=== PATIENT | female | born 1930 | race Caucasian/White ===

== ENCOUNTER 2016-06-23 04:15 | Inpatient (IN) | payer MEDICARE ==
[~2016-06-23] VITALS: Ht 147.3 cm; Wt 72.6 kg
[~2016-06-23 04:15] MED LIST: AMLO10TA2 PO; AMLO1CAP12 PO; AMOX1TAB61 PO; APIX5TAB PO; ASCO500C PO; ASCO500T2 PO; ASPI81TA44 PO; ASPI81TA9 PO; DIAZ5TAB PO; DIAZ5TAB4 PO; DOCU-27 PO; Diltiazem Hcl PO; ERGO500012 PO; FERR-26 PO; FERR325T72 PO; FERR500P8 MC; GUAI5SYR PO; HYDR-2672 PO; HYDR25TA9 PO; LEVO50TA5 PO; METO25TA4 PO; MULT-658 PO; NITR100C62 PO; PENI250T2 PO; POLY17PO5 PO; POLY500P14 MC; ROPI0.5T PO; VIT1CAPS10 PO; VIT1CAPS12 PO; VITA100020 PO; VITA200C PO; [UNRECOGNIZED DRUG - CODE] PO; [UNRECOGNIZED DRUG - CODE] PO; [UNRECOGNIZED DRUG - REMARK] MC
--- NOTE | 2016-06-23 04:42 | PHYS DOC ---
Past Medical History Past Medical History: Anxiety, High Cholesterol, Hypertension, Hypothyroid, Other Additional Past Medical Histor: HEART VALVE DISEASE Past Surgical History: Pacemaker, Other Additional Past Surgical Histo: umbilicial surgery, back surgery,DEFIBRILLATOR Alcohol Use: None Drug Use: None Adult General Chief Complaint Chief Complaint: MECHANICAL FALL HPI HPI 85-year-old female who had a fall from her bed at her assisted living facility, [facility], and has a large area of swelling to the right frontotemporal area of her forehead. Currently the patient had a fall several days ago as well but did not come in for evaluation at that time. Patient does state she has a mild headache but denies any other symptoms. EMS stated her O2 saturation was in the 80s and he put her on some oxygen prior to arrival. Currently she denies any chest pain or shortness of breath. She denies any fever or chills. She is without any complaints. She is able to answer all my questions and follow basic commands. Per the facility she is at her stated baseline. Her med list does not reveal any blood thinners. Review of Systems Review of Systems Constitutional: Denies fever or chills [] Eyes: Denies change in visual acuity, redness, or eye pain [] HENT: Denies nasal congestion or sore throat [] Respiratory: Denies cough or shortness of breath [] Cardiovascular: No additional information not addressed in HPI [] GI: Denies abdominal pain, nausea, vomiting, bloody stools or diarrhea [] : Denies dysuria or hematuria [] Musculoskeletal: Denies back pain or joint pain [] Integument: Denies rash or skin lesions [] Neurologic: Has headache, denies focal weakness or sensory changes [] Endocrine: Denies polyuria or polydipsia [] Current Medications Current Medications Current Medications Medications (Trade) Dose Ordered Sig/Josephine Start Time Stop Time Status Last Admin Dose Admin Acetaminophen (Tylenol) 650 mg PRN Q4HRS PRN 06/23/16 06:00 06/24/16 05:59 Acetaminophen 650 mg 650 mg 1X ONCE 06/23/16 05:00 06/23/16 05:01 DC 06/23/16 06:15 650 MG Albuterol/ Ipratropium (Duoneb) 3 ml 1X ONCE 06/23/16 05:00 06/23/16 05:01 DC 06/23/16 04:52 3 ML Azithromycin (Zithromax 500mg Ivpb For Omni) 250 ml @ 250 mls/hr 1X ONCE 06/23/16 05:45 06/23/16 06:44 Ondansetron HCl 4 mg 4 mg PRN Q8HRS PRN 06/23/16 06:00 06/24/16 05:59 Piperacillin Sod/ Tazobactam Sod 3.375 gm/Sodium Chloride 50 ml @ 100 mls/hr 1X ONCE 06/23/16 06:00 06/23/16 06:29 DC 06/23/16 06:15 100 MLS/HR Sodium Chloride (Iv Sodium Chloride 0.9% 500ml Bag) 500 ml @ 500 mls/hr 1X ONCE 06/23/16 04:45 06/23/16 05:44 DC 06/23/16 06:16 500 MLS/HR Sodium Chloride (Iv Sodium Chloride 0.9% 1000ml Bag) 1,000 ml @ 125 mls/hr Q8H 06/23/16 06:00 06/24/16 05:59 Vancomycin HCl (Vanco Per Pharmacy) 1 each PRN DAILY PRN 06/23/16 05:45 UNV Allergies Allergies Allergies Coded Allergies Type Severity Reaction Last Updated Verified No Known Allergies Allergy Unknown 02/17/16 Yes sulfur dioxide Adverse Reaction Intermediate COUGH 11/27/14 Yes Physical Exam Physical Exam Constitutional: Well developed, well nourished, no acute distress, non-toxic appearance. [] HENT: Normocephalic, area of swelling to the right frontotemporal region with noted bruising as well, bilateral external ears normal, oropharynx moist, no oral exudates, nose normal. [] Eyes: PERRLA, EOMI, conjunctiva normal, no discharge. [] Neck: Normal range of motion, no tenderness, supple, no stridor. [] Cardiovascular:Heart rate regular rhythm, no murmur [] Lungs & Thorax: Right lung has crackles with mild wheezing heard, no acute respiratory distress [] Abdomen: Bowel sounds normal, soft, no tenderness, no masses, no pulsatile masses. [] Skin: Warm, dry, no erythema, no rash. [] Back: No tenderness, no CVA tenderness. [] Extremities: Moderate tenderness to right foot with old bruising seen, no cyanosis, no clubbing, ROM intact, no edema. [] Neurologic: Alert and oriented X 3, normal motor function, normal sensory function, no focal deficits noted. [] Psychologic: Affect normal, judgement normal, mood normal. [] Current Patient Data Vital Signs Vital Signs Date Time Temp Pulse Resp B/P Pulse Ox O2 Delivery O2 Flow Rate FiO2 06/23/16 04:52 96 Room Air 06/23/16 04:15 100.0 64 14 167/87 3 100.0 Lab Values Laboratory Tests Test 06/23/16 05:40 White Blood Count 12.9x10^3/uL (4.0-11.0) H Red Blood Count 2.72x10^6/uL (3.50-5.40) L Hemoglobin 7.9g/dL (12.0-15.5) L Hematocrit 24.6% (36.0-47.0) L Mean Corpuscular Volume 90fL (79-100) Mean Corpuscular Hemoglobin 29pg (25-35) Mean Corpuscular Hemoglobin Concent 32g/dL (31-37) Red Cell Distribution Width 15.2% (11.5-14.5) H Platelet Count 274x10^3/uL (140-400) Neutrophils (%) (Auto) 86% (31-73) H Lymphocytes (%) (Auto) 7% (24-48) L Monocytes (%) (Auto) 6% (0-9) Eosinophils (%) (Auto) 1% (0-3) Basophils (%) (Auto) 1% (0-3) Neutrophils # (Auto) 11.1x10^3uL (1.8-7.7) H Lymphocytes # (Auto) 0.9x10^3/uL (1.0-4.8) L Monocytes # (Auto) 0.8x10^3/uL (0.0-1.1) Eosinophils # (Auto) 0.1x10^3/uL (0.0-0.7) Basophils # (Auto) 0.1x10^3/uL (0.0-0.2) Platelet Estimate Pending Urine Collection Type U cath Urine Color Yellow Urine Clarity Turbid Urine pH 7.5 Urine Specific [place] 1.015 Urine Protein 30mg/dL (NEG-TRACE) Urine Glucose (UA) Negativemg/dL (NEG) Urine Ketones (Stick) Negativemg/dL (NEG) Urine Blood Large (NEG) Urine Nitrite Positive (NEG) Urine Bilirubin Negative (NEG) Urine Urobilinogen Dipstick 1.0mg/dL (0.2 mg/dL) Urine Leukocyte Esterase Large (NEG) Urine RBC 6-10/HPF (0-2) Urine WBC >40/HPF (0-4) Urine Squamous Epithelial Cells Occ/LPF Urine Bacteria Many/HPF (0-FEW) Sodium Level 143mmol/L (136-145) Potassium Level 4.0mmol/L (3.5-5.1) Chloride Level 105mmol/L (98-107) Carbon Dioxide Level 30mmol/L (21-32) Anion Gap 8 (6-14) Blood Urea Nitrogen 22mg/dL (7-20) H Creatinine 0.9mg/dL (0.6-1.0) Estimated GFR (Cockcroft-Gault) 59.4 BUN/Creatinine Ratio 24 (6-20) H Glucose Level 115mg/dL (70-99) H Calcium Level 8.8mg/dL (8.5-10.1) Total Bilirubin 0.3mg/dL (0.2-1.0) Aspartate Amino Transferase (AST) 16U/L (15-37) Alanine Aminotransferase (ALT) 11U/L (14-59) L Alkaline Phosphatase 88U/L (46-116) Total Protein 6.8g/dL (6.4-8.2) Albumin 3.1g/dL (3.4-5.0) L Albumin/Globulin Ratio 0.8 (1.0-1.7) L Laboratory Tests 06/23/16 05:40 Laboratory Tests 06/23/16 05:40 EKG EKG EKG as interpreted by me shows a paced rhythm with a rate of 82 bpm. There is a nonspecific intraventricular block. Intervals are normal. There are no acute ST findings. Radiology/Procedures Radiology/Procedures One view of the chest as interpreted by me reveals what appears to be a left lower lobe pneumonia. Right hip and AP view of the pelvis Course & Med Decision Making Course & Med Decision Making Pertinent Labs and Imaging studies reviewed. (See chart for details) 85-year-old female who presents from assisted living facility has a low-grade temperature and obvious head injury. CT of her head will be obtained as well as full laboratory workup including a set of blood cultures and lactate. IV fluids will also be given. Her laboratory workup is still pending but does show a slight leukocytosis of 12.3. Her need for admission is discussed with the hospitalist, Dr. Orosco, who agreed with the assessment and plan to accept the patient for further evaluation and treatment. Antibiotic therapy was ordered for hospital-acquired pneumonia. CT of her head did not reveal any acute traumatic bleed that did show significant soft tissue swelling to the scalp. She is still requiring 3 L by nasal cannula. She was admitted without incident. Her hemoglobin today is 7.9 which has trended down over the last 4 months from a hemoglobin taken in January that was 11. She denies any blood in her stool. A fecal occult blood test will be ordered. Her urinalysis reveals nitrites. Dr. Orosco was updated about her laboratory results. Dragon Disclaimer Dragon Disclaimer This electronic medical record was generated, in whole or in part, using a voice recognition dictation system. Departure Departure Impression: Primary Impression: Hospital-acquired pneumonia Additional Impressions: Head injury Anemia UTI (urinary tract infection) Disposition: 01 HOME, SELF-CARE Admitting Physician: Tony Orosco Condition: STABLE Referrals: Kathryn PEREZ MD (PCP) Problem Qualifiers DARRIAN MONGE DO Jun 23, 2016 04:42
[2016-06-23] MEDS ORDERED: IV NORMAL SALINE 500ML BAG 500 ML IV ONE (04:45)
[2016-06-23] MEDS ORDERED: IPRATRPIUM/ALBUTEROL 0.5/2.5MG 3 ML NEBU. NEB ONE (05:00)
[2016-06-23] MEDS ORDERED: ACETAMINOPHEN 325 MG TABLET. PO ONE (05:00)
--- NOTE | 2016-06-23 05:16 | RAD ---
INDICATION: Trauma COMPARISON: November 25, 2014 TECHNIQUE: Axial CT images obtained through the head. One or more of the following individualized dose reduction techniques were utilized for this examination: 1. Automated exposure control; 2. Adjustment of the mA and/or kV according to patient size; 3. Use of iterative reconstruction technique. FINDINGS: No midline shift. Ventricles and sulci are prominent. Basilar cistern patent. No gross hemorrhage or intracranial mass. No displaced skull fracture. Regions of low attenuation of the white matter. IMPRESSION: No acute intracranial hemorrhage. Regions of low attenuation of the white matter. Nonspecific but frequently secondary to chronic small vessel ischemic disease. Right frontal scalp cephalohematoma at least moderate in size. Opacification left maxillary sinus is again seen. Electronically signed by: Regan Ramirez (Jun 23, 2016 05:14:58)
[2016-06-23] MEDS ORDERED: AZITHRMYCN 500MG IVPB FOR OMNI 250 ML IV ONE (05:45)
[2016-06-23] MEDS ORDERED: PIPERACILLIN/TAZOBACTAM 3.375 GM in IV NORMAL SALINE 50ML 50 ML IV ONE (06:00)
[2016-06-23] MEDS ORDERED: ONDANSETRON PF 4 MG/2 ML VIAL. IV PRN (06:00)
[2016-06-23] MEDS ORDERED: ACETAMINOPHEN 325 MG TABLET. PO PRN (06:00)
[2016-06-23 06:07] LABS: BASO # 0.1 x10^3/uL (0.0-0.2); BASO % 1 % (0-3); EOS % 1 % (0-3); HEMATOCRIT 24.6 % (36.0-47.0); HEMOGLOBIN 7.9 g/dL (12.0-15.5); LYMPH # 0.9 x10^3/uL (1.0-4.8); LYMPH % 7 % (24-48); MEAN CORPUSCULAR HEMOGLOBIN 29 pg (25-35); MEAN CORPUSCULAR HGB CONC 32 g/dL (31-37); MEAN CORPUSCULAR VOLUME 90 fL (79-100); MONO % 6 % (0-9); NEUT % 86 % (31-73); PLATELET COUNT 274 x10^3/uL (140-400); RED BLOOD COUNT 2.72 x10^6/uL (3.50-5.40); RED CELL DISTRIBUTION WIDTH 15.2 % (11.5-14.5); WHITE BLOOD COUNT 12.9 x10^3/uL (4.0-11.0)
[2016-06-23 06:19] LABS: BILIRUBIN,URINE NEGATIVE (NEG); GLUCOSE,URINE NEGATIVE (NEG); NITRITE,URINE POSITIVE (NEG); PH,URINE 7.5; PROTEIN,URINE 30 mg/dL (NEG-TRACE)
[2016-06-23 06:27] LABS: CALCIUM 8.8 mg/dL (8.5-10.1); CREATININE 0.9 mg/dL (0.6-1.0); GFR 59.4
[2016-06-23 06:29] LABS: BACTERIA,URINE MANY /HPF (0-FEW); SQUAMOUS EPITHELIAL CELL,UR OCC /LPF; WBC,URINE >40 /HPF (0-4)
[2016-06-23 06:32] LABS: ALBUMIN 3.1 g/dL (3.4-5.0); ALBUMIN/GLOBULIN RATIO 0.8 (1.0-1.7); TOTAL BILIRUBIN 0.3 mg/dL (0.2-1.0); TOTAL PROTEIN 6.8 g/dL (6.4-8.2)
--- NOTE | 2016-06-23 06:36 | EKG ---
[facility] [address] [place] [address] Test Date: 2016-06-23 Test Time: 04:26:22 Pat Name: KATHERINE AMADO Department: Room: Gender: F Communications Controller: : [id number] Requested By: DARRIAN MONGE Order Number: [id number] Reading MD: Neida Valdez Measurements Intervals [place] Rate: 82 P: 0 NV: 246 QRS: -121 QRSD: 148 T: 28 QT: 400 QTc: 471 Interpretive Statements SINUS RHYTHM PROLONGED NV INTERVAL LOW LIMB LEAD VOLTAGE NON SPECIFIC INTRAVENTRICULAR BLOCK QRS(T) CONTOUR ABNORMALITY CONSISTENT WITH ANTEROSEPTAL INFARCT AGE UNDETERMINED ABNORMAL ECG Electronically Signed On 06-26-2016 20:00:24 ARCHITECTURAL DRAFTING INSTRUCTOR by Neida Valdez
[2016-06-23] MEDS: HYDROCODONE/APAP 10/325 TABLET. PO PRN (07:13)
--- NOTE | 2016-06-23 07:40 | RAD ---
EXAM: Chest one view. HISTORY: Shortness of breath. COMPARISON: 02/17/2016. FINDINGS: A frontal view of the chest is obtained. A left-sided pacemaker has its leads in the right atrium and right ventricle. There is some rotational to the left. The inspiration is small. Interstitial and airspace opacities in the bases are consistent with a combination of chronic scarring along with atypical pneumonia or mild pulmonary edema. A small left pleural effusion is suspected. There is no pneumothorax. The heart is not enlarged. There are atherosclerotic calcifications of the aorta. IMPRESSION: 1. Left greater than right basilar atypical infiltrate versus mild pulmonary edema. 2. Possible small left pleural effusion.
--- NOTE | 2016-06-23 07:42 | RAD ---
EXAM: Frontal pelvis with 2V right hip. HISTORY: Right hip pain. COMPARISON: 01/28/2013. FINDINGS: No fractures are seen in the pelvis or either hip. There is only mild joint space narrowing medially at the right hip. Osteopenia is moderate. There is a moderate lumbar levoscoliosis with diffuse at least moderate degenerative disc disease. Stool throughout the colon is consistent with constipation. A soft tissue calcification is noted superior to the right greater trochanter. IMPRESSION: 1. No fracture. 2. Early right hip osteoarthritis for patient age. 3. Correlate for constipation.
[2016-06-23 08:00] VITALS: BP 117/51
[2016-06-23] MEDS ORDERED: VANCOMYCIN 1.75 GM in IV NORMAL SALINE 500ML BAG 500 ML IV ONE ×2 (08:00→10:00)
[2016-06-23] MEDS: IV NORMAL SALINE 1000ML BAG 1,000 ML IV SCH ×2 (09:40→14:00)
[2016-06-23 10:00] LABS: % BASOS 1 % (0-3); % EOS 1 % (0-5); PLT ESTIMATE ADEQUATE (ADEQUATE)
[2016-06-23 10:01] LABS: HYPOCHROMIA SLIGHT; STOMATOCYTES OCC
[2016-06-23] MEDS ORDERED: HYDR-963 PO (10:22)
[2016-06-23] MEDS ORDERED: AMIO200T2 PO (10:22)
[2016-06-23] MEDS ORDERED: DILT30TA26 PO (10:22)
[2016-06-23] MEDS ORDERED: VITA10004 PO (10:22)
[2016-06-23] MEDS ORDERED: METO25TA4 PO (10:22)
[2016-06-23] MEDS ORDERED: FURO20TA3 PO (10:22)
[2016-06-23] MEDS: VANCOMYCIN PER PHARMACY MC PRN (10:43)
[2016-06-23 11:00] VITALS: BP 107/45
[2016-06-23] MEDS ORDERED: HYDROCODONE/APAP 10/325 TABLET. PO PRN (11:15)
[2016-06-23] MEDS ORDERED: POLYETHYLENE GLYCOL 3350 17 GM PACKET. PO PRN (11:15)
[2016-06-23] MEDS: DIAZEPAM 5 MG TABLET PO SCH ×2 (12:00→21:12)
[2016-06-23 13:37] LABS: % SAT IRON 6 % (15-34); IRON,SERUM 15 ug/dL (50-170)
--- NOTE | 2016-06-23 14:03 | HP ---
ADMIT DATE: 06/23/2016 CHIEF COMPLAINT: Fall. HISTORY OF PRESENT ILLNESS AND HOSPITAL COURSE: This is an 85-year-old female, who resides at local assisted living facility, sustained a fall, trying to get back into bed, striking the right side of her head, also injuring her right foot. She was unable to care for herself and was brought to the Emergency Room for further evaluation. She was noted to have low oxygen saturations and chest x-ray was done exhibiting a possible pneumonia. The patient was also found to have a UTI and profound anemia with baseline hemoglobin of approximately 11 down to 7 on this evaluation. Due to the constellation of symptoms and findings, she was admitted for further evaluation. IV antibiotics for hospital-acquired pneumonia and UTI, PT and OT modalities and oxygen support. PAST MEDICAL HISTORY: Significant for 1. Hypertension. 2. Osteoarthritis. 3. High cholesterol. 4. Severe aortic stenosis. 5. Atrial fibrillation. 6. Left Ventricular hypertrophy. 7. Hypothyroidism. 8. Macular degeneration. 9. Tachybrady syndrome with permanent pacemaker. PAST SURGICAL HISTORY: 1. Umbilical hernia. 2. Back surgery. 3. Pacemaker placement. FAMILY HISTORY: Noncontributory. SOCIAL HISTORY: The patient has never smoked. She is . She lives at [facility] in assisted living area and has excellent support from daughter and son-in-law. ALLERGIES: THE PATIENT EXHIBITS ALLERGIES TO SULFA, CELEBREX AND AUGMENTIN. REVIEW OF SYSTEMS: The patient is able to answer questions, is aware of placed time and person, but is groggy ____ and able to give only minimal history. PHYSICAL EXAMINATION: GENERAL: This is a well-nourished female with traumatic injury to the right frontal and temporal areas with bruising and swelling. HEENT: Otherwise, benign. NECK: Supple. CARDIAC: Irregularly irregular with a grade 3/6 systolic ejection murmur. LUNGS: Clear anteriorly. ABDOMEN: Soft, without masses. EXTREMITIES: There is 2+ pulses without significant edema. She has a large amount of ecchymosis about her right toes from recent fall. NEUROLOGIC: Limited, but no unilateral findings were noted. ASSESSMENT: 1. Hospital-acquired pneumonia. 2. Urinary tract infection. 3. Profound anemia. 4. Traumatic injury to head with blood head trauma. 5. Right foot contusions and possible fracture, x-rays pending. PLAN: To proceed with PT and OT modalities treat with IV antibiotics, obtain Hemoccult stools and check anemia studies and consider transfusion and/or GI evaluation. RAMONA CABRAL MD DR: LUCIANO/sruthi JOB#: [id number] / [id number]
[2016-06-23] MEDS: HYDROCODONE/APAP 10/325 TABLET. PO SCH ×3 (14:05→21:12)
[2016-06-23] MEDS: FERROUS SULFATE 325 MG TABLET PO SCH (14:05)
[2016-06-23] MEDS: LEVOTHYROXINE 50 MCG TABLET PO SCH (14:06)
[2016-06-23] MEDS: VITAMIN E 200 UNIT CAPSULE. PO SCH (14:06)
[2016-06-23] MEDS: FUROSEMIDE 20 MG TABLET PO SCH (14:07)
[2016-06-23] MEDS: DILTIAZEM HCL 30 MG TABLET PO SCH ×2 (14:14→21:00)
[2016-06-23] MEDS: METOPROLOL TART IMMED RELEASE 25 MG TABLET PO SCH ×2 (14:15→21:12)
[2016-06-23] MEDS: AMIODARONE HCL 200 MG TABLET PO SCH (14:16)
[2016-06-23 15:00] VITALS: BP 111/48
[2016-06-23 19:00] VITALS: BP 99/46
[2016-06-23] MEDS: rOPINIRole 0.25 MG TABLET. PO SCH (21:00)
[2016-06-23 23:00] VITALS: BP 103/48
[2016-06-23] MEDS ORDERED: FUROSEMIDE 40 MG/4 ML VIAL IVP ONE (23:45)
[2016-06-24] VITALS (13 sets, daily range): BP systolic 96–139; BP diastolic 33–64
[2016-06-24 05:33] LABS: ALBUMIN 2.8 g/dL (3.4-5.0); ALBUMIN/GLOBULIN RATIO 0.8 (1.0-1.7); CALCIUM 8.8 mg/dL (8.5-10.1); CREATININE 0.7 mg/dL (0.6-1.0); GFR 79.3; POTASSIUM 4.5 mmol/L (3.5-5.1); TOTAL BILIRUBIN 0.2 mg/dL (0.2-1.0); TOTAL PROTEIN 6.4 g/dL (6.4-8.2)
[2016-06-24] MEDS: LEVOTHYROXINE 50 MCG TABLET PO SCH (06:05)
[2016-06-24 08:14] LABS: BASO # 0.1 x10^3/uL (0.0-0.2); BASO % 1 % (0-3); EOS % 8 % (0-3); HEMATOCRIT 23.4 % (36.0-47.0); HEMOGLOBIN 7.4 g/dL (12.0-15.5); LYMPH # 0.8 x10^3/uL (1.0-4.8); LYMPH % 10 % (24-48); MEAN CORPUSCULAR HEMOGLOBIN 30 pg (25-35); MEAN CORPUSCULAR HGB CONC 32 g/dL (31-37); MEAN CORPUSCULAR VOLUME 93 fL (79-100); MONO % 9 % (0-9); NEUT % 72 % (31-73); PLATELET COUNT 216 x10^3/uL (140-400); RED BLOOD COUNT 2.51 x10^6/uL (3.50-5.40); WHITE BLOOD COUNT 8.2 x10^3/uL (4.0-11.0)
[2016-06-24] MEDS: DIAZEPAM 5 MG TABLET PO SCH ×2 (09:00→20:50)
--- NOTE | 2016-06-24 09:00 | PDOC ---
PROGRESS NOTES Subjective Subjective Patient feeling better c/o feeling cold. retic count up iron only slightly low b12 and folate pending. B/P low last evening and patient on beta flakito. transfusion ordered. x-ray right foot today. Objective Objective Vital Signs Date Time Temp Pulse Resp B/P Pulse Ox O2 Delivery O2 Flow Rate FiO2 06/24/16 07:00 98.1 66 18 130/33 98 Nasal Cannula 2.0 98.1 Intake and Output 06/24/16 07:00 Intake Total 1240 ml Balance 1240 ml Intake Oral 690 ml IV Total 50 ml Other 500 ml # Voids 15 Physical Exam Abdomen: Normal bowel sounds Heart: Other (irregular 3/6 ROCAEL) Extremities: Other (eccymosis right foot/toes) General: Alert Lungs: Clear to auscultation Assessment Assessment Problems Medical Problems: (1) Anemia Status: Acute (2) Community acquired pneumonia Status: Acute (3) Head injury Status: Acute (4) Hospital-acquired pneumonia Status: Acute (5) UTI (urinary tract infection) Status: Acute 1. Hospital-acquired pneumonia. 2. Urinary tract infection. 3. Profound anemia. 4. fall with blunt head trauma. 5. Right foot contusions and possible fracture, x-rays pending. PAST MEDICAL HISTORY: Significant for 1. Hypertension. 2. Osteoarthritis. 3. High cholesterol. 4. Severe aortic stenosis. 5. Atrial fibrillation. 6. Left Ventricular hypertrophy. 7. Hypothyroidism. 8. Macular degeneration. 9. Tachybrady syndrome with permanent pacemaker. Plan Plan of Care Transfusion 2u PRBC's Continue iv antibx Continue PT/OT x-ray right foot Comment Review of Relevant I have reviewed the following items kimberly (where applicable) has been applied. Labs Laboratory Tests Test 06/23/16 05:40 06/23/16 08:40 06/23/16 11:05 06/23/16 11:55 White Blood Count 12.9x10^3/uL (4.0-11.0) Red Blood Count 2.72x10^6/uL (3.50-5.40) Hemoglobin 7.9g/dL (12.0-15.5) Hematocrit 24.6% (36.0-47.0) Mean Corpuscular Volume 90fL (79-100) Mean Corpuscular Hemoglobin 29pg (25-35) Mean Corpuscular Hemoglobin Concent 32g/dL (31-37) Red Cell Distribution Width 15.2% (11.5-14.5) Platelet Count 274x10^3/uL (140-400) Neutrophils (%) (Auto) 86% (31-73) Lymphocytes (%) (Auto) 7% (24-48) Monocytes (%) (Auto) 6% (0-9) Eosinophils (%) (Auto) 1% (0-3) Basophils (%) (Auto) 1% (0-3) Neutrophils # (Auto) 11.1x10^3uL (1.8-7.7) Lymphocytes # (Auto) 0.9x10^3/uL (1.0-4.8) Monocytes # (Auto) 0.8x10^3/uL (0.0-1.1) Eosinophils # (Auto) 0.1x10^3/uL (0.0-0.7) Basophils # (Auto) 0.1x10^3/uL (0.0-0.2) Segmented Neutrophils % 84% (35-66) Lymphocytes % 8% (24-48) Monocytes % 6% (0-10) Eosinophils % 1% (0-5) Basophils % 1% (0-3) Platelet Estimate Adequate (ADEQUATE) Hypochromasia Slight Stomatocytes Occ Urine Collection Type U cath Urine Color Yellow Urine Clarity Turbid Urine pH 7.5 Urine Specific [place] 1.015 Urine Protein 30mg/dL (NEG-TRACE) Urine Glucose (UA) Negativemg/dL (NEG) Urine Ketones (Stick) Negativemg/dL (NEG) Urine Blood Large (NEG) Urine Nitrite Positive (NEG) Urine Bilirubin Negative (NEG) Urine Urobilinogen Dipstick 1.0mg/dL (0.2 mg/dL) Urine Leukocyte Esterase Large (NEG) Urine RBC 6-10/HPF (0-2) Urine WBC >40/HPF (0-4) Urine Squamous Epithelial Cells Occ/LPF Urine Bacteria Many/HPF (0-FEW) Sodium Level 143mmol/L (136-145) Potassium Level 4.0mmol/L (3.5-5.1) Chloride Level 105mmol/L (98-107) Carbon Dioxide Level 30mmol/L (21-32) Anion Gap 8 (6-14) Blood Urea Nitrogen 22mg/dL (7-20) Creatinine 0.9mg/dL (0.6-1.0) Estimated GFR (Cockcroft-Gault) 59.4 BUN/Creatinine Ratio 24 (6-20) Glucose Level 115mg/dL (70-99) Lactic Acid Level 1.7mmol/L (0.4-2.0) Calcium Level 8.8mg/dL (8.5-10.1) Total Bilirubin 0.3mg/dL (0.2-1.0) Aspartate Amino Transf (AST/SGOT) 16U/L (15-37) Alanine Aminotransferase (ALT/SGPT) 11U/L (14-59) Alkaline Phosphatase 88U/L (46-116) Total Protein 6.8g/dL (6.4-8.2) Albumin 3.1g/dL (3.4-5.0) Albumin/Globulin Ratio 0.8 (1.0-1.7) Nasal Screen MRSA (PCR) Negative (Negative) Reticulocyte Count (auto) 2.8% (0.5-2.5) Ferritin 29ng/mL (8-252) Iron Level 15ug/dL (50-170) Total Iron Binding Capacity 258ug/dL (250-450) Iron Saturation 6% (15-34) Test 06/24/16 04:50 06/24/16 07:35 Sodium Level 142mmol/L (136-145) Potassium Level 4.5mmol/L (3.5-5.1) Chloride Level 106mmol/L (98-107) Carbon Dioxide Level 28mmol/L (21-32) Anion Gap 8 (6-14) Blood Urea Nitrogen 15mg/dL (7-20) Creatinine 0.7mg/dL (0.6-1.0) Estimated GFR (Cockcroft-Gault) 79.3 BUN/Creatinine Ratio 21 (6-20) Glucose Level 90mg/dL (70-99) Calcium Level 8.8mg/dL (8.5-10.1) Total Bilirubin 0.2mg/dL (0.2-1.0) Aspartate Amino Transf (AST/SGOT) 21U/L (15-37) Alanine Aminotransferase (ALT/SGPT) 12U/L (14-59) Alkaline Phosphatase 90U/L (46-116) Total Protein 6.4g/dL (6.4-8.2) Albumin 2.8g/dL (3.4-5.0) Albumin/Globulin Ratio 0.8 (1.0-1.7) White Blood Count 8.2x10^3/uL (4.0-11.0) Red Blood Count 2.51x10^6/uL (3.50-5.40) Hemoglobin 7.4g/dL (12.0-15.5) Hematocrit 23.4% (36.0-47.0) Mean Corpuscular Volume 93fL (79-100) Mean Corpuscular Hemoglobin 30pg (25-35) Mean Corpuscular Hemoglobin Concent 32g/dL (31-37) Red Cell Distribution Width 15.0% (11.5-14.5) Platelet Count 216x10^3/uL (140-400) Neutrophils (%) (Auto) 72% (31-73) Lymphocytes (%) (Auto) 10% (24-48) Monocytes (%) (Auto) 9% (0-9) Eosinophils (%) (Auto) 8% (0-3) Basophils (%) (Auto) 1% (0-3) Neutrophils # (Auto) 5.9x10^3uL (1.8-7.7) Lymphocytes # (Auto) 0.8x10^3/uL (1.0-4.8) Monocytes # (Auto) 0.7x10^3/uL (0.0-1.1) Eosinophils # (Auto) 0.7x10^3/uL (0.0-0.7) Basophils # (Auto) 0.1x10^3/uL (0.0-0.2) Laboratory Tests Test 06/23/16 11:05 06/23/16 11:55 06/24/16 04:50 06/24/16 07:35 Reticulocyte Count (auto) 2.8% (0.5-2.5) Ferritin 29ng/mL (8-252) Iron Level 15ug/dL (50-170) Total Iron Binding Capacity 258ug/dL (250-450) Iron Saturation 6% (15-34) Sodium Level 142mmol/L (136-145) Potassium Level 4.5mmol/L (3.5-5.1) Chloride Level 106mmol/L (98-107) Carbon Dioxide Level 28mmol/L (21-32) Anion Gap 8 (6-14) Blood Urea Nitrogen 15mg/dL (7-20) Creatinine 0.7mg/dL (0.6-1.0) Estimated GFR (Cockcroft-Gault) 79.3 BUN/Creatinine Ratio 21 (6-20) Glucose Level 90mg/dL (70-99) Calcium Level 8.8mg/dL (8.5-10.1) Total Bilirubin 0.2mg/dL (0.2-1.0) Aspartate Amino Transf (AST/SGOT) 21U/L (15-37) Alanine Aminotransferase (ALT/SGPT) 12U/L (14-59) Alkaline Phosphatase 90U/L (46-116) Total Protein 6.4g/dL (6.4-8.2) Albumin 2.8g/dL (3.4-5.0) Albumin/Globulin Ratio 0.8 (1.0-1.7) White Blood Count 8.2x10^3/uL (4.0-11.0) Red Blood Count 2.51x10^6/uL (3.50-5.40) Hemoglobin 7.4g/dL (12.0-15.5) Hematocrit 23.4% (36.0-47.0) Mean Corpuscular Volume 93fL (79-100) Mean Corpuscular Hemoglobin 30pg (25-35) Mean Corpuscular Hemoglobin Concent 32g/dL (31-37) Red Cell Distribution Width 15.0% (11.5-14.5) Platelet Count 216x10^3/uL (140-400) Neutrophils (%) (Auto) 72% (31-73) Lymphocytes (%) (Auto) 10% (24-48) Monocytes (%) (Auto) 9% (0-9) Eosinophils (%) (Auto) 8% (0-3) Basophils (%) (Auto) 1% (0-3) Neutrophils # (Auto) 5.9x10^3uL (1.8-7.7) Lymphocytes # (Auto) 0.8x10^3/uL (1.0-4.8) Monocytes # (Auto) 0.7x10^3/uL (0.0-1.1) Eosinophils # (Auto) 0.7x10^3/uL (0.0-0.7) Basophils # (Auto) 0.1x10^3/uL (0.0-0.2) Microbiology 06/23/16 Blood Culture - Preliminary, Resulted NO GROWTH AFTER 1 DAY Medications Current Medications Sodium Chloride (Iv Sodium Chloride 0.9% 500ml Bag) 500 ml @ 500 mls/hr 1X ONCE IV Last administered on 06/23/16 06:16; Start 06/23/16 at 04:45; Stop at 05:44; Status DC Albuterol/ Ipratropium (Duoneb) 3 ml 1X ONCE NEB Last administered on 04:52; Start 06/23/16 at 05:00; Stop 06/23/16 at 05:01; Status DC Acetaminophen 650 mg 650 mg 1X ONCE PO Last administered on 06/23/16 06:15; Start 06/23/16 at 05:00; Stop 06/23/16 at 05:01; Status DC Piperacillin Sod/ Tazobactam Sod 3.375 gm/Sodium Chloride 50 ml @ 100 mls/hr 1X ONCE IV Last administered on 06/23/16 06:15; Start 06/23/16 at 06:00; Stop 06/23/16 at 06:29; Status DC Azithromycin (Zithromax 500mg Ivpb For Omni) 250 ml @ 250 mls/hr 1X ONCE IV ; Start 06/23/16 at 05:45; Stop 06/23/16 at 06:44; Status DC Vancomycin HCl (Vanco Per Pharmacy) 1 each PRN DAILY PRN MC SEE COMMENTS Last administered on 06/23/16 10:43; Start 06/23/16 at 05:45 Ondansetron HCl 4 mg 4 mg PRN Q8HRS PRN IV NAUSEA/VOMITING; Start 06/23/16 at 06:00; Stop 06/24/16 at 05:59; Status DC Sodium Chloride (Iv Sodium Chloride 0.9% 1000ml Bag) 1,000 ml @ 125 mls/hr Q8H IV Last administered on 06/23/16 09:40; Start 06/23/16 at 06:00; Stop at 15:30; Status DC Acetaminophen 650 mg 650 mg PRN Q4HRS PRN PO FEVER; Start 06/23/16 at 06:00; Stop 06/24/16 at 05:59; Status DC Vancomycin HCl/ Sodium Chloride (Iv Sodium Chloride 0.9% 500ml Bag) 500 ml @ 250 mls/hr 1X ONCE IV ; Start 06/23/16 at 08:00; Stop 06/23/16 at 09:59; Status Cancel Acetaminophen/ Hydrocodone Bitart 1 tab 1 tab PRN Q6HRS PRN PO PAIN Last administered on 06/23/16 07:13; Start 06/23/16 at 07:00 Vancomycin HCl 1.75 gm/Sodium Chloride 500 ml @ 250 mls/hr 1X ONCE IV Last administered on 06/23/16 10:35; Start 06/23/16 at 10:00; Stop 06/23/16 at 11:59 ; Status DC Vancomycin HCl/ Sodium Chloride (Iv Sodium Chloride 0.9% 250ml) 250 ml @ 250 mls/hr Q12H IV ; Start 06/24/16 at 10:00 Vancomycin HCl 1 each 1X ONCE MC ; Start 06/25/16 at 09:30; Stop 06/25/16 at 09 :31 Amiodarone HCl (Cordarone) 200 mg DAILY PO Last administered on 06/23/16 14:16 ; Start 06/23/16 at 12:00 Ascorbic Acid (Vitamin C) 500 mg DAILY PO ; Start 06/24/16 at 12:00 Diazepam (Valium) 5 mg BID PO Last administered on 06/23/16 21:12; Start 06/23 at 12:00 Diltiazem HCl (Cardizem) 30 mg BID PO Last administered on 06/23/16 14:14; Start 06/23/16 at 12:00 Ferrous Sulfate (Feosol) 325 mg DAILYWBKFT PO Last administered on 06/23/16 14 :05; Start 06/23/16 at 12:00 Furosemide (Lasix) 20 mg DAILY PO Last administered on 06/23/16 14:07; Start 06/23/16 at 12:00 Acetaminophen/ Hydrocodone Bitart (Lortab 10/325) 1 tab PRN Q4HRS PRN PO MODERATE, SEVERE PAIN Last administered on 06/23/16 17:34; Start 06/23/16 at 11 :15 Acetaminophen/ Hydrocodone Bitart (Lortab 10/325) 1 tab QID PO Last administered on 06/23/16 21:12; Start 06/23/16 at 13:00 Levothyroxine Sodium (Synthroid) 50 mcg DAILY06 PO Last administered on 06:05; Start 06/23/16 at 12:00 Metoprolol Tartrate (Lopressor) 25 mg BID PO Last administered on 06/23/16 21: 12; Start 06/23/16 at 12:00 Polyethylene Glycol (miraLAX PACKET) 17 gm PRN DAILY PRN PO PRN CONSTIPATION FIRST CHOICE; Start 06/23/16 at 11:15 Ropinirole HCl (Requip) 0.25 mg QHS PO Last administered on 06/23/16 21:00; Start 06/23/16 at 21:00 Vitamin E 1000 unit 1,000 unit DAILY PO Last administered on 06/23/16 14:06; Start 06/23/16 at 12:00 Levofloxacin/ Dextrose 100 ml @ 100 mls/hr Q24H IV ; Start 06/23/16 at 11:15; Status UNV Levofloxacin/ Dextrose (LEVAQUIN 750mg PREMIX) 150 ml @ 100 mls/hr Q48H IV Last administered on 06/23/16 14:05; Start 06/23/16 at 12:00 Furosemide (Lasix) 40 mg 1X ONCE IVP ; Start 06/23/16 at 23:45; Stop 06/23/16 at 23:46; Status DC Active Scripts Active Requip (Ropinirole Hcl) 0.5 Mg Tablet 0.25 Mg PO QHS Miralax (Polyethylene Glycol 3350) 17 Gm Powd.pack 17 Gm PO PRN DAILY PRN Levothyroxine Sodium 50 Mcg Tablet 50 Mcg PO DAILY06 Hydrocodone-Apap 10-325 (Hydrocodone Bit/Acetaminophen) 1 Each Tablet 1 Tab PO PRN Q4HRS PRN Feosol (Ferrous Sulfate) 325 Mg Tablet 325 Mg PO DAILY Diazepam 5 Mg Tablet 5 Mg PO BID Aspirin Ec (Aspirin) 81 Mg Tablet.dr 81 Mg PO DAILYWBKFT Vitamin C (Ascorbic Acid) 500 Mg Tablet 500 Mg PO DAILY Eliquis (Apixaban) 5 Mg Tablet 5 Mg PO BID Reported [place] 10-325 Tablet (Acetaminophen/Hydrocodone Bitart) 1 Each Tablet 1 Tab PO QID Cardizem Tablet (Diltiazem Hcl) 30 Mg Tablet 30 Mg PO BID Metoprolol Tartrate 25 Mg Tablet 1 Tab PO BID Vitamin E (Vitamin E Acetate) 1,000 Unit Capsule 1,000 Unit PO DAILY Amiodarone Hcl 200 Mg Tablet 1 Tab PO DAILY Furosemide 20 Mg Tablet 1 Tab PO DAILY Vitamin D2 (Ergocalciferol (Vitamin D2)) 50,000 Unit Capsule 1 Cap PO WEEKLY Vitals/I & O Vital Sign - Last 24 Hours 06/23/16 06/23/16 06/23/16 06/23/16 11:00 14:05 14:14 14:15 Temp 98.0 98.0 Pulse 74 67 67 Resp 18 B/P 107/45 110/39 110/39 Pulse Ox 94 O2 Delivery Nasal Cannula Nasal Cannula O2 Flow Rate 2.0 06/23/16 06/23/16 06/23/16 06/23/16 14:16 15:00 19:00 19:08 Temp 97.9 98.0 97.9 98.0 Pulse 67 86 67 Resp 16 18 B/P 110/39 111/48 99/46 Pulse Ox 95 90 O2 Delivery Nasal Cannula Room Air Room Air 06/23/16 06/23/16 06/23/16 06/23/16 20:05 21:00 21:12 21:12 Pulse 67 67 Resp 18 B/P 99/46 99/46 O2 Delivery Nasal Cannula Room Air O2 Flow Rate 2.0 06/23/16 06/23/16 06/24/16 06/24/16 22:12 23:00 03:00 07:00 Temp 98.0 98.1 98.1 98.0 98.1 98.1 Pulse 60 66 66 Resp 18 18 18 18 B/P 103/48 135/57 130/33 Pulse Ox 90 98 98 O2 Delivery Room Air Nasal Cannula Nasal Cannula Nasal Cannula O2 Flow Rate 2.0 2.0 2.0 Intake and Output 06/23/16 06/23/16 06/24/16 15:00 23:00 07:00 Intake Total 50 ml 690 ml 500 ml Balance 50 ml 690 ml 500 ml RAMONA CABRAL MD Jun 24, 2016 09:00
[2016-06-24] MEDS: FERROUS SULFATE 325 MG TABLET PO SCH (09:04)
[2016-06-24] MEDS: FUROSEMIDE 20 MG TABLET PO SCH (09:04)
[2016-06-24] MEDS: METOPROLOL TART IMMED RELEASE 25 MG TABLET PO SCH ×2 (09:04→20:49)
[2016-06-24] MEDS: AMIODARONE HCL 200 MG TABLET PO SCH (09:04)
[2016-06-24] MEDS: VITAMIN E 200 UNIT CAPSULE. PO SCH (09:05)
[2016-06-24] MEDS: DILTIAZEM HCL 30 MG TABLET PO SCH ×2 (09:05→20:50)
[2016-06-24] MEDS: HYDROCODONE/APAP 10/325 TABLET. PO SCH ×4 (09:05→20:50)
[2016-06-24 09:08] LABS: FOLATE 11.89 ng/ml (3.2-20.0)
--- NOTE | 2016-06-24 09:56 | RAD ---
EXAM: Right foot 2 views. HISTORY: Fall with right foot injury and bruising. COMPARISON: None. FINDINGS: Osteoporosis is severe. There is a chronic appearing fracture deformity along the second metatarsal. A small cortical step-off is suspected lung the base of the metatarsals on the lateral projection. There is overlying soft tissue swelling. There are rotation limitations, but midfoot alignment appears maintained. Tarsometatarsal osteoarthritis appears moderate. IMPRESSION: 1. Severe osteoporosis limits evaluation for nondisplaced fractures. A nondisplaced fracture is suspected along the dorsum of one of the metatarsals on the lateral projection only. This is age indeterminate. Midfoot alignment is maintained. 2. Soft tissue swelling.
[2016-06-24] MEDS ORDERED: VANCOMYCIN 1 GM in IV NORMAL SALINE 250ML 250 ML IV SCH (10:00)
[2016-06-24] MEDS ORDERED: FUROSEMIDE 40 MG/4 ML VIAL IVP ONE (11:30)
[2016-06-24] MEDS: ASCORBIC ACID 500 MG TABLET PO SCH (13:20)
[2016-06-24] MEDS: VANCOMYCIN PER PHARMACY MC PRN (17:22)
[2016-06-24] MEDS: rOPINIRole 0.25 MG TABLET. PO SCH (20:50)
[2016-06-25 03:45] VITALS: BP 144/61
[2016-06-25 04:28] LABS: HEMATOCRIT 30.1 % (36.0-47.0); RED BLOOD COUNT 3.41 x10^6/uL (3.50-5.40); RED CELL DISTRIBUTION WIDTH 15.1 % (11.5-14.5); WHITE BLOOD COUNT 9.9 x10^3/uL (4.0-11.0)
[2016-06-25 04:34] LABS: CALCIUM 8.9 mg/dL (8.5-10.1); CREATININE 0.7 mg/dL (0.6-1.0); GFR 79.3; POTASSIUM 3.9 mmol/L (3.5-5.1)
[2016-06-25] MEDS: LEVOTHYROXINE 50 MCG TABLET PO SCH (06:29)
[2016-06-25 07:00] VITALS: BP 113/35
[2016-06-25] MEDS: FUROSEMIDE 20 MG TABLET PO SCH (08:55)
[2016-06-25] MEDS: METOPROLOL TART IMMED RELEASE 25 MG TABLET PO SCH ×2 (08:55→21:51)
[2016-06-25] MEDS: AMIODARONE HCL 200 MG TABLET PO SCH (08:55)
[2016-06-25] MEDS: ASCORBIC ACID 500 MG TABLET PO SCH (08:55)
[2016-06-25] MEDS: FERROUS SULFATE 325 MG TABLET PO SCH (08:55)
[2016-06-25] MEDS: VITAMIN E 200 UNIT CAPSULE. PO SCH (08:55)
[2016-06-25] MEDS: DILTIAZEM HCL 30 MG TABLET PO SCH ×2 (08:56→21:50)
[2016-06-25] MEDS: HYDROCODONE/APAP 10/325 TABLET. PO SCH ×4 (08:59→21:50)
[2016-06-25] MEDS: DIAZEPAM 5 MG TABLET PO SCH ×2 (09:00→21:00)
[2016-06-25 11:00] VITALS: BP 103/32
--- NOTE | 2016-06-25 12:57 | PDOC ---
PROGRESS NOTES Subjective Subjective Patient c/o pain in head and right foot. Objective Objective Vital Signs Date Time Temp Pulse Resp B/P Pulse Ox O2 Delivery O2 Flow Rate FiO2 06/25/16 11:00 98.5 70 20 103/32 92 Nasal Cannula 2.0 98.5 Intake and Output 06/25/16 07:00 Intake Total 240 ml Balance 240 ml Intake Oral 240 ml # Voids 6 Physical Exam Abdomen: Normal bowel sounds, Soft, No tenderness Heart: Regular rate, Other (harsh holosystolic murmur) Extremities: Other (edema and ecchymosis over dorsum of right foot) General: Alert, Oriented X3, No acute distress Lungs: Other (few crackles bilateral bases, no wheezes, no cough during exam) Assessment Assessment Problems Medical Problems: (1) Anemia Status: Acute (2) Community acquired pneumonia Status: Acute (3) Head injury Status: Acute (4) Hospital-acquired pneumonia Status: Acute (5) UTI (urinary tract infection) Status: Acute Plan Plan of Care 1. Pneumonia - stable, continue abx and O2. 2. possible UTI - preliminary culture is negative. Await final report. 3. iron-deficiency anemia - Hgb improved after transfusion, continue po Fe daily. 4. HTN - controlled, continue present meds. Comment Review of Relevant I have reviewed the following items kimberly (where applicable) has been applied. Labs Laboratory Tests Test 06/24/16 04:50 06/24/16 07:35 06/25/16 04:05 Sodium Level 142mmol/L (136-145) 141mmol/L (136-145) Potassium Level 4.5mmol/L (3.5-5.1) 3.9mmol/L (3.5-5.1) Chloride Level 106mmol/L (98-107) 104mmol/L (98-107) Carbon Dioxide Level 28mmol/L (21-32) 33mmol/L (21-32) Anion Gap 8 (6-14) 4 (6-14) Blood Urea Nitrogen 15mg/dL (7-20) 17mg/dL (7-20) Creatinine 0.7mg/dL (0.6-1.0) 0.7mg/dL (0.6-1.0) Estimated GFR (Cockcroft-Gault) 79.3 79.3 BUN/Creatinine Ratio 21 (6-20) Glucose Level 90mg/dL (70-99) 112mg/dL (70-99) Calcium Level 8.8mg/dL (8.5-10.1) 8.9mg/dL (8.5-10.1) Total Bilirubin 0.2mg/dL (0.2-1.0) Aspartate Amino Transf (AST/SGOT) 21U/L (15-37) Alanine Aminotransferase (ALT/SGPT) 12U/L (14-59) Alkaline Phosphatase 90U/L (46-116) Total Protein 6.4g/dL (6.4-8.2) Albumin 2.8g/dL (3.4-5.0) Albumin/Globulin Ratio 0.8 (1.0-1.7) White Blood Count 8.2x10^3/uL (4.0-11.0) 9.9x10^3/uL (4.0-11.0) Red Blood Count 2.51x10^6/uL (3.50-5.40) 3.41x10^6/uL (3.50-5.40) Hemoglobin 7.4g/dL (12.0-15.5) 10.0g/dL (12.0-15.5) Hematocrit 23.4% (36.0-47.0) 30.1% (36.0-47.0) Mean Corpuscular Volume 93fL (79-100) 88fL (79-100) Mean Corpuscular Hemoglobin 30pg (25-35) 29pg (25-35) Mean Corpuscular Hemoglobin Concent 32g/dL (31-37) 33g/dL (31-37) Red Cell Distribution Width 15.0% (11.5-14.5) 15.1% (11.5-14.5) Platelet Count 216x10^3/uL (140-400) 223x10^3/uL (140-400) Neutrophils (%) (Auto) 72% (31-73) Lymphocytes (%) (Auto) 10% (24-48) Monocytes (%) (Auto) 9% (0-9) Eosinophils (%) (Auto) 8% (0-3) Basophils (%) (Auto) 1% (0-3) Neutrophils # (Auto) 5.9x10^3uL (1.8-7.7) Lymphocytes # (Auto) 0.8x10^3/uL (1.0-4.8) Monocytes # (Auto) 0.7x10^3/uL (0.0-1.1) Eosinophils # (Auto) 0.7x10^3/uL (0.0-0.7) Basophils # (Auto) 0.1x10^3/uL (0.0-0.2) Laboratory Tests Test 06/25/16 04:05 White Blood Count 9.9x10^3/uL (4.0-11.0) Red Blood Count 3.41x10^6/uL (3.50-5.40) Hemoglobin 10.0g/dL (12.0-15.5) Hematocrit 30.1% (36.0-47.0) Mean Corpuscular Volume 88fL (79-100) Mean Corpuscular Hemoglobin 29pg (25-35) Mean Corpuscular Hemoglobin Concent 33g/dL (31-37) Red Cell Distribution Width 15.1% (11.5-14.5) Platelet Count 223x10^3/uL (140-400) Sodium Level 141mmol/L (136-145) Potassium Level 3.9mmol/L (3.5-5.1) Chloride Level 104mmol/L (98-107) Carbon Dioxide Level 33mmol/L (21-32) Anion Gap 4 (6-14) Blood Urea Nitrogen 17mg/dL (7-20) Creatinine 0.7mg/dL (0.6-1.0) Estimated GFR (Cockcroft-Gault) 79.3 Glucose Level 112mg/dL (70-99) Calcium Level 8.9mg/dL (8.5-10.1) Microbiology 06/23/16 Blood Culture - Preliminary, Resulted NO GROWTH AFTER 2 DAYS 06/23/16 Urine Culture - Preliminary, Resulted 06/23/16 Urine Culture Result 1 (ABDI) - Preliminary, Resulted Medications Current Medications Sodium Chloride (Iv Sodium Chloride 0.9% 500ml Bag) 500 ml @ 500 mls/hr 1X ONCE IV Last administered on 06/23/16t 06:16; Start 06/23/16 at 04:45; Stop at 05:44; Status DC Albuterol/ Ipratropium (Duoneb) 3 ml 1X ONCE NEB Last administered on 04:52; Start 06/23/16 at 05:00; Stop 06/23/16 at 05:01; Status DC Acetaminophen 650 mg 650 mg 1X ONCE PO Last administered on 06/23/16 06:15; Start 06/23/16 at 05:00; Stop 06/23/16 at 05:01; Status DC Piperacillin Sod/ Tazobactam Sod 3.375 gm/Sodium Chloride 50 ml @ 100 mls/hr 1X ONCE IV Last administered on 06/23/16 06:15; Start 06/23/16 at 06:00; Stop 06/23/16 at 06:29; Status DC Azithromycin (Zithromax 500mg Ivpb For Omni) 250 ml @ 250 mls/hr 1X ONCE IV ; Start 06/23/16 at 05:45; Stop 06/23/16 at 06:44; Status DC Vancomycin HCl (Vanco Per Pharmacy) 1 each PRN DAILY PRN MC SEE COMMENTS Last administered on 06/24/16 17:22; Start 06/23/16 at 05:45 Ondansetron HCl 4 mg 4 mg PRN Q8HRS PRN IV NAUSEA/VOMITING; Start 06/23/16 at 06:00; Stop 06/24/16 at 05:59; Status DC Sodium Chloride (Iv Sodium Chloride 0.9% 1000ml Bag) 1,000 ml @ 125 mls/hr Q8H IV Last administered on 06/23/16 09:40; Start 06/23/16 at 06:00; Stop at 15:30; Status DC Acetaminophen 650 mg 650 mg PRN Q4HRS PRN PO FEVER; Start 06/23/16 at 06:00; Stop 06/24/16 at 05:59; Status DC Vancomycin HCl/ Sodium Chloride (Iv Sodium Chloride 0.9% 500ml Bag) 500 ml @ 250 mls/hr 1X ONCE IV ; Start 06/23/16 at 08:00; Stop 06/23/16 at 09:59; Status Cancel Acetaminophen/ Hydrocodone Bitart 1 tab 1 tab PRN Q6HRS PRN PO PAIN Last administered on 06/23/16 07:13; Start 06/23/16 at 07:00 Vancomycin HCl 1.75 gm/Sodium Chloride 500 ml @ 250 mls/hr 1X ONCE IV Last administered on 06/23/16 10:35; Start 06/23/16 at 10:00; Stop 06/23/16 at 11:59 ; Status DC Vancomycin HCl/ Sodium Chloride (Iv Sodium Chloride 0.9% 250ml) 250 ml @ 250 mls/hr Q12H IV Last administered on 06/24/16 17:16; Start 06/24/16 at 10:00; Stop 06/24/16 at 17:18; Status DC Vancomycin HCl 1 each 1X ONCE MC ; Start 06/25/16 at 16:30; Stop 06/25/16 at 16 :31 Amiodarone HCl (Cordarone) 200 mg DAILY PO Last administered on 06/25/16 08:55 ; Start 06/23/16 at 12:00 Ascorbic Acid (Vitamin C) 500 mg DAILY PO Last administered on 06/25/16 08:55 ; Start 06/24/16 at 12:00 Diazepam (Valium) 5 mg BID PO Last administered on 06/23/16 21:12; Start 06/23 at 12:00 Diltiazem HCl (Cardizem) 30 mg BID PO Last administered on 06/25/16 08:56; Start 06/23/16 at 12:00 Ferrous Sulfate (Feosol) 325 mg DAILYWBKFT PO Last administered on 06/25/16 08 :55; Start 06/23/16 at 12:00 Furosemide (Lasix) 20 mg DAILY PO Last administered on 06/25/16 08:55; Start 06/23/16 at 12:00 Acetaminophen/ Hydrocodone Bitart (Lortab 10/325) 1 tab PRN Q4HRS PRN PO MODERATE, SEVERE PAIN Last administered on 06/23/16 17:34; Start 06/23/16 at 11 :15 Acetaminophen/ Hydrocodone Bitart (Lortab 10/325) 1 tab QID PO Last administered on 06/25/16 08:59; Start 06/23/16 at 13:00 Levothyroxine Sodium (Synthroid) 50 mcg DAILY06 PO Last administered on 06:29; Start 06/23/16 at 12:00 Metoprolol Tartrate (Lopressor) 25 mg BID PO Last administered on 06/25/16 08: 55; Start 06/23/16 at 12:00 Polyethylene Glycol (miraLAX PACKET) 17 gm PRN DAILY PRN PO PRN CONSTIPATION FIRST CHOICE Last administered on 06/25/16 10:02; Start 06/23/16 at 11:15 Ropinirole HCl (Requip) 0.25 mg QHS PO Last administered on 06/24/16 20:50; Start 06/23/16 at 21:00 Vitamin E 1000 unit 1,000 unit DAILY PO Last administered on 06/25/16 08:55; Start 06/23/16 at 12:00 Levofloxacin/ Dextrose 100 ml @ 100 mls/hr Q24H IV ; Start 06/23/16 at 11:15; Status UNV Levofloxacin/ Dextrose (LEVAQUIN 750mg PREMIX) 150 ml @ 100 mls/hr Q48H IV Last administered on 06/23/16 14:05; Start 06/23/16 at 12:00 Furosemide (Lasix) 40 mg 1X ONCE IVP ; Start 06/23/16 at 23:45; Stop 06/23/16 at 23:46; Status DC Furosemide 40 mg 40 mg 1X ONCE IVP Last administered on 06/24/16 13:42; Start 06/24/16 at 11:30; Stop 06/24/16 at 11:31; Status DC Vancomycin HCl/ Sodium Chloride (Iv Sodium Chloride 0.9% 250ml) 250 ml @ 250 mls/hr Q24H IV ; Start 06/25/16 at 17:00 Active Scripts Active Requip (Ropinirole Hcl) 0.5 Mg Tablet 0.25 Mg PO QHS Miralax (Polyethylene Glycol 3350) 17 Gm Powd.pack 17 Gm PO PRN DAILY PRN Levothyroxine Sodium 50 Mcg Tablet 50 Mcg PO DAILY06 Hydrocodone-Apap 10-325 (Hydrocodone Bit/Acetaminophen) 1 Each Tablet 1 Tab PO PRN Q4HRS PRN Feosol (Ferrous Sulfate) 325 Mg Tablet 325 Mg PO DAILY Diazepam 5 Mg Tablet 5 Mg PO BID Aspirin Ec (Aspirin) 81 Mg Tablet.dr 81 Mg PO DAILYWBKFT Vitamin C (Ascorbic Acid) 500 Mg Tablet 500 Mg PO DAILY Eliquis (Apixaban) 5 Mg Tablet 5 Mg PO BID Reported [place] 10-325 Tablet (Acetaminophen/Hydrocodone Bitart) 1 Each Tablet 1 Tab PO QID Cardizem Tablet (Diltiazem Hcl) 30 Mg Tablet 30 Mg PO BID Metoprolol Tartrate 25 Mg Tablet 1 Tab PO BID Vitamin E (Vitamin E Acetate) 1,000 Unit Capsule 1,000 Unit PO DAILY Amiodarone Hcl 200 Mg Tablet 1 Tab PO DAILY Furosemide 20 Mg Tablet 1 Tab PO DAILY Vitamin D2 (Ergocalciferol (Vitamin D2)) 50,000 Unit Capsule 1 Cap PO WEEKLY Vitals/I & O Vital Sign - Last 24 Hours 06/24/16 06/24/16 06/24/16 06/24/16 13:20 13:30 14:00 14:30 Temp 97.9 97.9 97.7 97.9 97.9 97.7 Pulse 66 66 62 Resp B/P 104/37 104/37 96/64 O2 Delivery Nasal Cannula O2 Flow Rate 2.0 06/24/16 06/24/16 06/24/16 06/24/16 14:30 14:39 15:16 15:30 Temp 97.5 98.6 98.1 97.5 98.6 98.1 Pulse 63 66 69 Resp 20 B/P 116/42 104/37 115/42 Pulse Ox 98 O2 Delivery BiPAP/CPAP O2 Flow Rate 2.0 2.0 06/24/16 06/24/16 06/24/16 06/24/16 17:16 19:50 19:55 20:00 Temp 98.1 98.1 Pulse 68 Resp 21 B/P 121/46 Pulse Ox 89 94 O2 Delivery Room Air Room Air Room Air Nasal Cannula O2 Flow Rate 2.0 2.0 06/24/16 06/24/16 06/24/16 06/25/16 20:49 20:50 23:33 03:45 Temp 98.4 98.5 98.4 98.5 Pulse 68 68 61 62 Resp 22 B/P 121/46 121/46 101/49 144/61 Pulse Ox 93 98 O2 Delivery Room Air Nasal Cannula O2 Flow Rate 2.0 06/25/16 06/25/16 06/25/16 06/25/16 07:00 08:20 08:55 08:55 Temp 98.7 98.7 Pulse 67 67 67 Resp 16 B/P 113/35 113/35 113/35 Pulse Ox 97 O2 Delivery Nasal Cannula Room Air O2 Flow Rate 2.0 06/25/16 06/25/16 06/25/16 06/25/16 08:56 08:59 10:00 11:00 Temp 98.5 98.5 Pulse 67 70 Resp 18 18 20 B/P 113/35 103/32 Pulse Ox 92 O2 Delivery Room Air Room Air Nasal Cannula O2 Flow Rate 2.0 Intake and Output 06/24/16 06/24/16 06/25/16 15:00 23:00 07:00 Intake Total 240 ml 0 ml Balance 240 ml 0 ml NOE SAWYER MD Jun 25, 2016 12:57
[2016-06-25 15:00] VITALS: BP 125/39
[2016-06-25] MEDS ORDERED: VANCOMYCIN 1 GM in IV NORMAL SALINE 250ML 250 ML IV SCH (17:00)
[2016-06-25] MEDS: DICLOFENAC SODIUM 1% TOPICAL GEL 100GM TUBE. TP PRN (17:31)
[2016-06-25 19:00] VITALS: BP 111/55
[2016-06-25] MEDS: VANCOMYCIN PER PHARMACY MC PRN (21:20)
[2016-06-25] MEDS: rOPINIRole 0.25 MG TABLET. PO SCH (21:50)
[2016-06-25 23:00] VITALS: BP 108/51
[2016-06-26 03:22] VITALS: BP 103/57
[2016-06-26] MEDS: LEVOTHYROXINE 50 MCG TABLET PO SCH (06:18)
[2016-06-26] MEDS: VANCOMYCIN 1 GM in IV NORMAL SALINE 250ML 250 ML IV SCH ×2 (06:18→18:35)
[2016-06-26 07:00] VITALS: BP 135/59
[2016-06-26] MEDS: FUROSEMIDE 20 MG TABLET PO SCH (08:48)
[2016-06-26] MEDS: AMIODARONE HCL 200 MG TABLET PO SCH (08:48)
[2016-06-26] MEDS: FERROUS SULFATE 325 MG TABLET PO SCH (08:48)
[2016-06-26] MEDS: VITAMIN E 200 UNIT CAPSULE. PO SCH (08:48)
[2016-06-26] MEDS: ASCORBIC ACID 500 MG TABLET PO SCH (08:49)
[2016-06-26] MEDS: DILTIAZEM HCL 30 MG TABLET PO SCH ×2 (08:49→20:59)
[2016-06-26] MEDS: HYDROCODONE/APAP 10/325 TABLET. PO SCH ×4 (08:49→23:01)
[2016-06-26] MEDS: METOPROLOL TART IMMED RELEASE 25 MG TABLET PO SCH ×2 (08:50→20:59)
[2016-06-26] MEDS: DIAZEPAM 5 MG TABLET PO SCH ×2 (08:50→21:00)
[2016-06-26 11:00] VITALS: BP 126/57
--- NOTE | 2016-06-26 11:59 | PDOC ---
PROGRESS NOTES Subjective Subjective Patient c/o constipation. Objective Objective Vital Signs Date Time Temp Pulse Resp B/P Pulse Ox O2 Delivery O2 Flow Rate FiO2 06/26/16 10:10 16 Nasal Cannula 2.0 06/26/16 08:50 63 135/59 06/26/16 07:00 97.6 98 97.6 Intake and Output 06/26/16 07:00 Intake Total 300 ml Balance 300 ml Intake Oral 300 ml # Voids 6 Physical Exam Abdomen: Normal bowel sounds, Soft, No tenderness Heart: Regular rate, Other (III/ holosystolic murmur) Extremities: Other (Dorsum of right foot with moderate edema and resolving ecchymosis) General: Alert, Oriented X3, No acute distress Lungs: Clear to auscultation (BS mildly decreased throughout) Assessment Assessment Problems Medical Problems: (1) Anemia Status: Acute (2) Community acquired pneumonia Status: Acute (3) Head injury Status: Acute (4) Hospital-acquired pneumonia Status: Acute (5) UTI (urinary tract infection) Status: Acute Plan Plan of Care 1. Pneumonia - stable, continue Levaquin and Vancomycin. 2. fx right foot - xrays show fracture of unidentified metatarsal. Post- operative shoe ordered for when patient is out of bed. Continue po pain meds. 3. constipation - Miralax daily and Dulcolax x1 now. 4. anemia - iron-deficiency. Continue Fe daily and check lab in AM. 5. HTN - controlled, continue present meds. 6. possible UTI - preliminary culture negative, final report not available yet. Already on Levaquin. Comment Review of Relevant I have reviewed the following items kimberly (where applicable) has been applied. Labs Laboratory Tests Test 06/25/16 04:05 06/25/16 16:25 White Blood Count 9.9x10^3/uL (4.0-11.0) Red Blood Count 3.41x10^6/uL (3.50-5.40) Hemoglobin 10.0g/dL (12.0-15.5) Hematocrit 30.1% (36.0-47.0) Mean Corpuscular Volume 88fL (79-100) Mean Corpuscular Hemoglobin 29pg (25-35) Mean Corpuscular Hemoglobin Concent 33g/dL (31-37) Red Cell Distribution Width 15.1% (11.5-14.5) Platelet Count 223x10^3/uL (140-400) Sodium Level 141mmol/L (136-145) Potassium Level 3.9mmol/L (3.5-5.1) Chloride Level 104mmol/L (98-107) Carbon Dioxide Level 33mmol/L (21-32) Anion Gap 4 (6-14) Blood Urea Nitrogen 17mg/dL (7-20) Creatinine 0.7mg/dL (0.6-1.0) Estimated GFR (Cockcroft-Gault) 79.3 Glucose Level 112mg/dL (70-99) Calcium Level 8.9mg/dL (8.5-10.1) Vancomycin Level Trough 7.9mcg/mL (10.0-20.0) Vancomycin Last Dose Date Vancomycin Last Dose Time Laboratory Tests Test 06/25/16 16:25 Vancomycin Level Trough 7.9mcg/mL (10.0-20.0) Vancomycin Last Dose Date Vancomycin Last Dose Time Microbiology 06/23/16 Blood Culture - Preliminary, Resulted NO GROWTH AFTER 3 DAYS 06/23/16 Urine Culture - Preliminary, Resulted 06/23/16 Urine Culture Result 1 (ABDI) - Preliminary, Resulted Medications Current Medications Sodium Chloride (Iv Sodium Chloride 0.9% 500ml Bag) 500 ml @ 500 mls/hr 1X ONCE IV Last administered on 06/23/16 06:16; Start 06/23/16 at 04:45; Stop at 05:44; Status DC Albuterol/ Ipratropium (Duoneb) 3 ml 1X ONCE NEB Last administered on 04:52; Start 06/23/16 at 05:00; Stop 06/23/16 at 05:01; Status DC Acetaminophen 650 mg 650 mg 1X ONCE PO Last administered on 06/23/16 06:15; Start 06/23/16 at 05:00; Stop 06/23/16 at 05:01; Status DC Piperacillin Sod/ Tazobactam Sod 3.375 gm/Sodium Chloride 50 ml @ 100 mls/hr 1X ONCE IV Last administered on 06/23/16 06:15; Start 06/23/16 at 06:00; Stop 06/23/16 at 06:29; Status DC Azithromycin (Zithromax 500mg Ivpb For Omni) 250 ml @ 250 mls/hr 1X ONCE IV ; Start 06/23/16 at 05:45; Stop 06/23/16 at 06:44; Status DC Vancomycin HCl (Vanco Per Pharmacy) 1 each PRN DAILY PRN MC SEE COMMENTS Last administered on 06/25/16 21:20; Start 06/23/16 at 05:45 Ondansetron HCl 4 mg 4 mg PRN Q8HRS PRN IV NAUSEA/VOMITING; Start 06/23/16 at 06:00; Stop 06/24/16 at 05:59; Status DC Sodium Chloride (Iv Sodium Chloride 0.9% 1000ml Bag) 1,000 ml @ 125 mls/hr Q8H IV Last administered on 06/23/16 09:40; Start 06/23/16 at 06:00; Stop at 15:30; Status DC Acetaminophen 650 mg 650 mg PRN Q4HRS PRN PO FEVER; Start 06/23/16 at 06:00; Stop 06/24/16 at 05:59; Status DC Vancomycin HCl/ Sodium Chloride (Iv Sodium Chloride 0.9% 500ml Bag) 500 ml @ 250 mls/hr 1X ONCE IV ; Start 06/23/16 at 08:00; Stop 06/23/16 at 09:59; Status Cancel Acetaminophen/ Hydrocodone Bitart 1 tab 1 tab PRN Q6HRS PRN PO PAIN Last administered on 06/23/16 07:13; Start 06/23/16 at 07:00 Vancomycin HCl 1.75 gm/Sodium Chloride 500 ml @ 250 mls/hr 1X ONCE IV Last administered on 06/23/16 10:35; Start 06/23/16 at 10:00; Stop 06/23/16 at 11:59 ; Status DC Vancomycin HCl/ Sodium Chloride (Iv Sodium Chloride 0.9% 250ml) 250 ml @ 250 mls/hr Q12H IV Last administered on 06/24/16 17:16; Start 06/24/16 at 10:00; Stop 06/24/16 at 17:18; Status DC Vancomycin HCl 1 each 1X ONCE MC Last administered on 06/25/16 16:30; Start 06/25/16 at 16:30; Stop 06/25/16 at 17:10; Status DC Amiodarone HCl (Cordarone) 200 mg DAILY PO Last administered on 06/26/16 08:48 ; Start 06/23/16 at 12:00 Ascorbic Acid (Vitamin C) 500 mg DAILY PO Last administered on 06/26/16 08:49 ; Start 06/24/16 at 12:00 Diazepam (Valium) 5 mg BID PO Last administered on 06/23/16 21:12; Start 06/23 at 12:00 Diltiazem HCl (Cardizem) 30 mg BID PO Last administered on 06/26/16 08:49; Start 06/23/16 at 12:00 Ferrous Sulfate (Feosol) 325 mg DAILYWBKFT PO Last administered on 06/26/16 08 :48; Start 06/23/16 at 12:00 Furosemide (Lasix) 20 mg DAILY PO Last administered on 06/26/16 08:48; Start 06/23/16 at 12:00 Acetaminophen/ Hydrocodone Bitart (Lortab 10/325) 1 tab PRN Q4HRS PRN PO MODERATE, SEVERE PAIN Last administered on 06/23/16 17:34; Start 06/23/16 at 11 :15 Acetaminophen/ Hydrocodone Bitart (Lortab 10/325) 1 tab QID PO Last administered on 06/26/16 08:49; Start 06/23/16 at 13:00 Levothyroxine Sodium (Synthroid) 50 mcg DAILY06 PO Last administered on 06:18; Start 06/23/16 at 12:00 Metoprolol Tartrate (Lopressor) 25 mg BID PO Last administered on 06/26/16 08: 50; Start 06/23/16 at 12:00 Polyethylene Glycol (miraLAX PACKET) 17 gm PRN DAILY PRN PO PRN CONSTIPATION FIRST CHOICE Last administered on 06/25/16 10:02; Start 06/23/16 at 11:15 Ropinirole HCl (Requip) 0.25 mg QHS PO Last administered on 06/25/16 21:50; Start 06/23/16 at 21:00 Vitamin E 1000 unit 1,000 unit DAILY PO Last administered on 06/26/16 08:48; Start 06/23/16 at 12:00 Levofloxacin/ Dextrose 100 ml @ 100 mls/hr Q24H IV ; Start 06/23/16 at 11:15; Status UNV Levofloxacin/ Dextrose (LEVAQUIN 750mg PREMIX) 150 ml @ 100 mls/hr Q48H IV Last administered on 06/25/16 13:21; Start 06/23/16 at 12:00 Furosemide (Lasix) 40 mg 1X ONCE IVP ; Start 06/23/16 at 23:45; Stop 06/23/16 at 23:46; Status DC Furosemide 40 mg 40 mg 1X ONCE IVP Last administered on 06/24/16 13:42; Start 06/24/16 at 11:30; Stop 06/24/16 at 11:31; Status DC Vancomycin HCl/ Sodium Chloride (Iv Sodium Chloride 0.9% 250ml) 250 ml @ 250 mls/hr Q24H IV Last administered on 06/25/16 17:35; Start 06/25/16 at 17:00; Stop 06/25/16 at 21:19; Status DC Diclofenac Sodium 1 elda 1 elda PRN QID PRN TP PAIN Last administered on 17:31; Start 06/25/16 at 12:51 Vancomycin HCl/ Sodium Chloride (Iv Sodium Chloride 0.9% 250ml) 250 ml @ 250 mls/hr Q12H IV Last administered on 06/26/16 06:18; Start 06/26/16 at 06:00 Active Scripts Active Requip (Ropinirole Hcl) 0.5 Mg Tablet 0.25 Mg PO QHS Miralax (Polyethylene Glycol 3350) 17 Gm Powd.pack 17 Gm PO PRN DAILY PRN Levothyroxine Sodium 50 Mcg Tablet 50 Mcg PO DAILY06 Hydrocodone-Apap 10-325 (Hydrocodone Bit/Acetaminophen) 1 Each Tablet 1 Tab PO PRN Q4HRS PRN Feosol (Ferrous Sulfate) 325 Mg Tablet 325 Mg PO DAILY Diazepam 5 Mg Tablet 5 Mg PO BID Aspirin Ec (Aspirin) 81 Mg Tablet.dr 81 Mg PO DAILYWBKFT Vitamin C (Ascorbic Acid) 500 Mg Tablet 500 Mg PO DAILY Eliquis (Apixaban) 5 Mg Tablet 5 Mg PO BID Reported [place] 10-325 Tablet (Acetaminophen/Hydrocodone Bitart) 1 Each Tablet 1 Tab PO QID Cardizem Tablet (Diltiazem Hcl) 30 Mg Tablet 30 Mg PO BID Metoprolol Tartrate 25 Mg Tablet 1 Tab PO BID Vitamin E (Vitamin E Acetate) 1,000 Unit Capsule 1,000 Unit PO DAILY Amiodarone Hcl 200 Mg Tablet 1 Tab PO DAILY Furosemide 20 Mg Tablet 1 Tab PO DAILY Vitamin D2 (Ergocalciferol (Vitamin D2)) 50,000 Unit Capsule 1 Cap PO WEEKLY Vitals/I & O Vital Sign - Last 24 Hours 06/25/16 06/25/16 06/25/16 06/25/16 13:21 15:00 17:31 19:00 Temp 97.9 97.6 97.9 97.6 Pulse 69 73 Resp 18 20 18 20 B/P 125/39 111/55 Pulse Ox 96 98 O2 Delivery Room Air Nasal Cannula Nasal Cannula Nasal Cannula O2 Flow Rate 2.0 2.0 06/25/16 06/25/16 06/25/16 06/25/16 20:00 21:50 21:50 21:51 Resp 16 B/P 111/55 111/55 O2 Delivery Room Air Room Air 06/25/16 06/26/16 06/26/16 06/26/16 23:00 03:22 07:00 08:10 Temp 96.3 97.3 97.6 96.3 97.3 97.6 Pulse 68 66 63 Resp 20 20 20 B/P 108/51 103/57 135/59 Pulse Ox 98 95 98 O2 Delivery Nasal Cannula Nasal Cannula Nasal Cannula Nasal Cannula O2 Flow Rate 2.0 06/26/16 06/26/16 06/26/16 06/26/16 08:48 08:49 08:49 08:50 Pulse 63 63 63 Resp 18 B/P 135/59 135/59 135/59 O2 Delivery Nasal Cannula O2 Flow Rate 2.0 06/26/16 10:10 Resp 16 O2 Delivery Nasal Cannula O2 Flow Rate 2.0 Intake and Output 06/25/16 06/25/16 06/26/16 15:00 23:00 07:00 Intake Total 300 ml Balance 300 ml NOE SAWYER MD Jun 26, 2016 11:59
[2016-06-26] MEDS ORDERED: BISACODYL 5 MG TABLET.DR. PO ONE (12:00)
[2016-06-26] MEDS: POLYETHYLENE GLYCOL 3350 17 GM PACKET. PO SCH (14:09)
[2016-06-26 15:00] VITALS: BP 125/51
[2016-06-26] MEDS: VANCOMYCIN PER PHARMACY MC PRN (16:55)
[2016-06-26 19:00] VITALS: BP 114/46
[2016-06-26] MEDS: rOPINIRole 0.25 MG TABLET. PO SCH (20:59)
[2016-06-26] MEDS: DICLOFENAC SODIUM 1% TOPICAL GEL 100GM TUBE. TP PRN (22:58)
[2016-06-26 23:36] VITALS: BP 121/55
[2016-06-27 03:13] VITALS: BP 109/55
[2016-06-27] MEDS: LEVOTHYROXINE 50 MCG TABLET PO SCH (05:36)
[2016-06-27] MEDS: VANCOMYCIN 1 GM in IV NORMAL SALINE 250ML 250 ML IV SCH ×2 (05:37→18:49)
[2016-06-27 05:41] LABS: HEMOGLOBIN 9.8 g/dL (12.0-15.5); RED BLOOD COUNT 3.35 x10^6/uL (3.50-5.40); RED CELL DISTRIBUTION WIDTH 14.6 % (11.5-14.5); WHITE BLOOD COUNT 6.1 x10^3/uL (4.0-11.0)
[2016-06-27 05:55] LABS: CALCIUM 8.9 mg/dL (8.5-10.1); CREATININE 0.7 mg/dL (0.6-1.0); GFR 79.3; POTASSIUM 4.4 mmol/L (3.5-5.1)
[2016-06-27 07:00] VITALS: BP 148/55
[2016-06-27] MEDS: POLYETHYLENE GLYCOL 3350 17 GM PACKET. PO SCH (08:46)
[2016-06-27] MEDS: VITAMIN E 200 UNIT CAPSULE. PO SCH (08:46)
[2016-06-27] MEDS: FUROSEMIDE 20 MG TABLET PO SCH (08:47)
[2016-06-27] MEDS: HYDROCODONE/APAP 10/325 TABLET. PO SCH ×4 (08:47→21:56)
[2016-06-27] MEDS: FERROUS SULFATE 325 MG TABLET PO SCH (08:47)
[2016-06-27] MEDS: AMIODARONE HCL 200 MG TABLET PO SCH (08:48)
[2016-06-27] MEDS: METOPROLOL TART IMMED RELEASE 25 MG TABLET PO SCH ×2 (08:49→21:55)
[2016-06-27] MEDS: DIAZEPAM 5 MG TABLET PO SCH ×2 (08:49→21:00)
[2016-06-27] MEDS: ASCORBIC ACID 500 MG TABLET PO SCH (08:49)
[2016-06-27] MEDS: DILTIAZEM HCL 30 MG TABLET PO SCH ×2 (08:49→21:55)
--- NOTE | 2016-06-27 08:52 | PDOC ---
PROGRESS NOTES Subjective Subjective Patient alert today. patient c/o constipation. now BM for several days. Objective Objective Vital Signs Date Time Temp Pulse Resp B/P Pulse Ox O2 Delivery O2 Flow Rate FiO2 06/27/16 03:13 97.9 69 18 109/55 97 Nasal Cannula 2.0 97.9 Intake and Output 06/27/16 06:59 Intake Total 325 ml Balance 325 ml Intake Oral 100 ml Other 225 ml # Voids 6 Physical Exam Abdomen: Normal bowel sounds, Other (mildly tender fullness noted) Heart: Regular rate, Other (3/6 jeff) Extremities: No edema, Other (bruising right foot) General: Alert Lungs: Clear to auscultation Assessment Assessment Problems Medical Problems: (1) Anemia Status: Acute (2) Community acquired pneumonia Status: Acute (3) Head injury Status: Acute (4) Hospital-acquired pneumonia Status: Acute (5) UTI (urinary tract infection) Status: Acute 1. Hospital-acquired pneumonia. 2. Urinary tract infection. 3. anemia s/p transfusion 4. fall with blunt head trauma. 5. Right foot fracture PAST MEDICAL HISTORY: Significant for 1. Hypertension. 2. Osteoarthritis. 3. High cholesterol. 4. Severe aortic stenosis. 5. Atrial fibrillation. 6. Left Ventricular hypertrophy. 7. Hypothyroidism. 8. Macular degeneration. 9. Tachybrady syndrome with permanent pacemaker. Plan Plan of Care Patient to SNU or NH doubt can manage at this time with assisted living Mag-citrate and enema if needed today Change to po antibx in am Continue PT/OT modalities Comment Review of Relevant I have reviewed the following items kimberly (where applicable) has been applied. Labs Laboratory Tests Test 06/25/16 16:25 06/27/16 04:50 Vancomycin Level Trough 7.9mcg/mL (10.0-20.0) Vancomycin Last Dose Date Vancomycin Last Dose Time White Blood Count 6.1x10^3/uL (4.0-11.0) Red Blood Count 3.35x10^6/uL (3.50-5.40) Hemoglobin 9.8g/dL (12.0-15.5) Hematocrit 30.0% (36.0-47.0) Mean Corpuscular Volume 90fL (79-100) Mean Corpuscular Hemoglobin 29pg (25-35) Mean Corpuscular Hemoglobin Concent 33g/dL (31-37) Red Cell Distribution Width 14.6% (11.5-14.5) Platelet Count 217x10^3/uL (140-400) Sodium Level 144mmol/L (136-145) Potassium Level 4.4mmol/L (3.5-5.1) Chloride Level 106mmol/L (98-107) Carbon Dioxide Level 36mmol/L (21-32) Anion Gap 2 (6-14) Blood Urea Nitrogen 15mg/dL (7-20) Creatinine 0.7mg/dL (0.6-1.0) Estimated GFR (Cockcroft-Gault) 79.3 Glucose Level 91mg/dL (70-99) Calcium Level 8.9mg/dL (8.5-10.1) Laboratory Tests Test 06/27/16 04:50 White Blood Count 6.1x10^3/uL (4.0-11.0) Red Blood Count 3.35x10^6/uL (3.50-5.40) Hemoglobin 9.8g/dL (12.0-15.5) Hematocrit 30.0% (36.0-47.0) Mean Corpuscular Volume 90fL (79-100) Mean Corpuscular Hemoglobin 29pg (25-35) Mean Corpuscular Hemoglobin Concent 33g/dL (31-37) Red Cell Distribution Width 14.6% (11.5-14.5) Platelet Count 217x10^3/uL (140-400) Sodium Level 144mmol/L (136-145) Potassium Level 4.4mmol/L (3.5-5.1) Chloride Level 106mmol/L (98-107) Carbon Dioxide Level 36mmol/L (21-32) Anion Gap 2 (6-14) Blood Urea Nitrogen 15mg/dL (7-20) Creatinine 0.7mg/dL (0.6-1.0) Estimated GFR (Cockcroft-Gault) 79.3 Glucose Level 91mg/dL (70-99) Calcium Level 8.9mg/dL (8.5-10.1) Microbiology 06/23/16 Blood Culture - Preliminary, Resulted NO GROWTH AFTER 4 DAYS 06/23/16 Urine Culture - Preliminary, Resulted 06/23/16 Urine Culture Result 1 (ABDI) - Preliminary, Resulted Medications Current Medications Sodium Chloride (Iv Sodium Chloride 0.9% 500ml Bag) 500 ml @ 500 mls/hr 1X ONCE IV Last administered on 06/23/16 06:16; Start 06/23/16 at 04:45; Stop at 05:44; Status DC Albuterol/ Ipratropium (Duoneb) 3 ml 1X ONCE NEB Last administered on 04:52; Start 06/23/16 at 05:00; Stop 06/23/16 at 05:01; Status DC Acetaminophen 650 mg 650 mg 1X ONCE PO Last administered on 06/23/16 06:15; Start 06/23/16 at 05:00; Stop 06/23/16 at 05:01; Status DC Piperacillin Sod/ Tazobactam Sod 3.375 gm/Sodium Chloride 50 ml @ 100 mls/hr 1X ONCE IV Last administered on 06/23/16 06:15; Start 06/23/16 at 06:00; Stop 06/23/16 at 06:29; Status DC Azithromycin (Zithromax 500mg Ivpb For Omni) 250 ml @ 250 mls/hr 1X ONCE IV ; Start 06/23/16 at 05:45; Stop 06/23/16 at 06:44; Status DC Vancomycin HCl (Vanco Per Pharmacy) 1 each PRN DAILY PRN MC SEE COMMENTS Last administered on 06/26/16 16:55; Start 06/23/16 at 05:45 Ondansetron HCl 4 mg 4 mg PRN Q8HRS PRN IV NAUSEA/VOMITING; Start 06/23/16 at 06:00; Stop 06/24/16 at 05:59; Status DC Sodium Chloride (Iv Sodium Chloride 0.9% 1000ml Bag) 1,000 ml @ 125 mls/hr Q8H IV Last administered on 06/23/16 09:40; Start 06/23/16 at 06:00; Stop at 15:30; Status DC Acetaminophen 650 mg 650 mg PRN Q4HRS PRN PO FEVER; Start 06/23/16 at 06:00; Stop 06/24/16 at 05:59; Status DC Vancomycin HCl/ Sodium Chloride (Iv Sodium Chloride 0.9% 500ml Bag) 500 ml @ 250 mls/hr 1X ONCE IV ; Start 06/23/16 at 08:00; Stop 06/23/16 at 09:59; Status Cancel Acetaminophen/ Hydrocodone Bitart 1 tab 1 tab PRN Q6HRS PRN PO PAIN Last administered on 06/23/16 07:13; Start 06/23/16 at 07:00 Vancomycin HCl 1.75 gm/Sodium Chloride 500 ml @ 250 mls/hr 1X ONCE IV Last administered on 06/23/16 10:35; Start 06/23/16 at 10:00; Stop 06/23/16 at 11:59 ; Status DC Vancomycin HCl/ Sodium Chloride (Iv Sodium Chloride 0.9% 250ml) 250 ml @ 250 mls/hr Q12H IV Last administered on 06/24/16 17:16; Start 06/24/16 at 10:00; Stop 06/24/16 at 17:18; Status DC Vancomycin HCl 1 each 1X ONCE MC Last administered on 06/25/16 16:30; Start 06/25/16 at 16:30; Stop 06/25/16 at 17:10; Status DC Amiodarone HCl (Cordarone) 200 mg DAILY PO Last administered on 06/26/16 08:48 ; Start 06/23/16 at 12:00 Ascorbic Acid (Vitamin C) 500 mg DAILY PO Last administered on 06/26/16 08:49 ; Start 06/24/16 at 12:00 Diazepam (Valium) 5 mg BID PO Last administered on 06/23/16 21:12; Start 06/23 at 12:00 Diltiazem HCl (Cardizem) 30 mg BID PO Last administered on 06/26/16 20:59; Start 06/23/16 at 12:00 Ferrous Sulfate (Feosol) 325 mg DAILYWBKFT PO Last administered on 06/26/16 08 :48; Start 06/23/16 at 12:00 Furosemide (Lasix) 20 mg DAILY PO Last administered on 06/26/16 08:48; Start 06/23/16 at 12:00 Acetaminophen/ Hydrocodone Bitart (Lortab 10/325) 1 tab PRN Q4HRS PRN PO MODERATE, SEVERE PAIN Last administered on 06/23/16 17:34; Start 06/23/16 at 11 :15 Acetaminophen/ Hydrocodone Bitart (Lortab 10/325) 1 tab QID PO Last administered on 06/26/16 23:01; Start 06/23/16 at 13:00 Levothyroxine Sodium (Synthroid) 50 mcg DAILY06 PO Last administered on 05:36; Start 06/23/16 at 12:00 Metoprolol Tartrate (Lopressor) 25 mg BID PO Last administered on 06/26/16 20: 59; Start 06/23/16 at 12:00 Polyethylene Glycol (miraLAX PACKET) 17 gm PRN DAILY PRN PO PRN CONSTIPATION FIRST CHOICE Last administered on 06/25/16 10:02; Start 06/23/16 at 11:15; Stop 06/27/16 at 09:00 Ropinirole HCl (Requip) 0.25 mg QHS PO Last administered on 06/26/16 20:59; Start 06/23/16 at 21:00 Vitamin E 1000 unit 1,000 unit DAILY PO Last administered on 06/26/16 08:48; Start 06/23/16 at 12:00 Levofloxacin/ Dextrose 100 ml @ 100 mls/hr Q24H IV ; Start 06/23/16 at 11:15; Status UNV Levofloxacin/ Dextrose (LEVAQUIN 750mg PREMIX) 150 ml @ 100 mls/hr Q48H IV Last administered on 06/25/16 13:21; Start 06/23/16 at 12:00 Furosemide (Lasix) 40 mg 1X ONCE IVP ; Start 06/23/16 at 23:45; Stop 06/23/16 at 23:46; Status DC Furosemide 40 mg 40 mg 1X ONCE IVP Last administered on 06/24/16 13:42; Start 06/24/16 at 11:30; Stop 06/24/16 at 11:31; Status DC Vancomycin HCl/ Sodium Chloride (Iv Sodium Chloride 0.9% 250ml) 250 ml @ 250 mls/hr Q24H IV Last administered on 06/25/16 17:35; Start 06/25/16 at 17:00; Stop 06/25/16 at 21:19; Status DC Diclofenac Sodium 1 elda 1 elda PRN QID PRN TP PAIN Last administered on 22:58; Start 06/25/16 at 12:51 Vancomycin HCl/ Sodium Chloride (Iv Sodium Chloride 0.9% 250ml) 250 ml @ 250 mls/hr Q12H IV Last administered on 06/27/16 05:37; Start 06/26/16 at 06:00 Polyethylene Glycol (miraLAX PACKET) 17 gm DAILY PO Last administered on 14:09; Start 06/26/16 at 12:00 Bisacodyl (Dulcolax Tab) 10 mg ONCE ONCE PO Last administered on 06/26/16 14: 09; Start 06/26/16 at 12:00; Stop 06/26/16 at 12:02; Status DC Active Scripts Active Requip (Ropinirole Hcl) 0.5 Mg Tablet 0.25 Mg PO QHS Miralax (Polyethylene Glycol 3350) 17 Gm Powd.pack 17 Gm PO PRN DAILY PRN Levothyroxine Sodium 50 Mcg Tablet 50 Mcg PO DAILY06 Hydrocodone-Apap 10-325 (Hydrocodone Bit/Acetaminophen) 1 Each Tablet 1 Tab PO PRN Q4HRS PRN Feosol (Ferrous Sulfate) 325 Mg Tablet 325 Mg PO DAILY Diazepam 5 Mg Tablet 5 Mg PO BID Aspirin Ec (Aspirin) 81 Mg Tablet.dr 81 Mg PO DAILYWBKFT Vitamin C (Ascorbic Acid) 500 Mg Tablet 500 Mg PO DAILY Eliquis (Apixaban) 5 Mg Tablet 5 Mg PO BID Reported [place] 10-325 Tablet (Acetaminophen/Hydrocodone Bitart) 1 Each Tablet 1 Tab PO QID Cardizem Tablet (Diltiazem Hcl) 30 Mg Tablet 30 Mg PO BID Metoprolol Tartrate 25 Mg Tablet 1 Tab PO BID Vitamin E (Vitamin E Acetate) 1,000 Unit Capsule 1,000 Unit PO DAILY Amiodarone Hcl 200 Mg Tablet 1 Tab PO DAILY Furosemide 20 Mg Tablet 1 Tab PO DAILY Vitamin D2 (Ergocalciferol (Vitamin D2)) 50,000 Unit Capsule 1 Cap PO WEEKLY Vitals/I & O Vital Sign - Last 24 Hours 06/26/16 06/26/16 06/26/16 06/26/16 08:48 08:49 08:49 08:50 Pulse 63 63 63 Resp 18 B/P 135/59 135/59 135/59 O2 Delivery Nasal Cannula O2 Flow Rate 2.0 06/26/16 06/26/16 06/26/16 06/26/16 11:00 14:10 15:00 18:36 Temp 98.1 97.7 98.1 97.7 Pulse 66 72 Resp 20 18 B/P 126/57 125/51 Pulse Ox 93 95 O2 Delivery Nasal Cannula Nasal Cannula Nasal Cannula Nasal Cannula O2 Flow Rate 2.0 2.0 06/26/16 06/26/16 06/26/16 06/26/16 19:00 20:00 20:59 20:59 Temp 98.1 98.1 Pulse 68 68 68 Resp 18 B/P 114/46 114/46 114/46 Pulse Ox 97 O2 Delivery Nasal Cannula Nasal Cannula O2 Flow Rate 2.0 2.0 06/26/16 06/26/16 06/27/16 06/27/16 23:01 23:36 00:01 03:13 Temp 97.9 97.9 97.9 97.9 Pulse 64 69 Resp 16 18 B/P 121/55 109/55 Pulse Ox 95 97 O2 Delivery Nasal Cannula Nasal Cannula Nasal Cannula Nasal Cannula O2 Flow Rate 2.0 2.0 2.0 2.0 Intake and Output 06/26/16 06/26/16 06/27/16 14:59 22:59 06:59 Intake Total 225 ml 100 ml Balance 225 ml 100 ml RAMONA CABRAL MD Jun 27, 2016 08:51
[2016-06-27] MEDS ORDERED: MAGNESIUM CITRATE 296 ML SOLUTION. PO ONE (09:00)
[2016-06-27] MEDS: VANCOMYCIN PER PHARMACY MC PRN (10:50)
[2016-06-27 11:00] VITALS: BP 136/65
[2016-06-27 15:00] VITALS: BP 106/61
[2016-06-27] MEDS: HYDROCODONE/APAP 10/325 TABLET. PO PRN (15:24)
[2016-06-27 19:15] VITALS: BP 113/79
[2016-06-27] MEDS: rOPINIRole 0.25 MG TABLET. PO SCH (21:56)
[2016-06-27 23:56] VITALS: BP 112/38
[2016-06-28 03:53] VITALS: BP 127/51
[2016-06-28] MEDS: LEVOTHYROXINE 50 MCG TABLET PO SCH (06:14)
[2016-06-28] MEDS: VANCOMYCIN 1 GM in IV NORMAL SALINE 250ML 250 ML IV SCH (06:14)
[2016-06-28 07:00] VITALS: BP 120/52
[2016-06-28] MEDS: VITAMIN E 200 UNIT CAPSULE. PO SCH (08:27)
[2016-06-28] MEDS: FUROSEMIDE 20 MG TABLET PO SCH (08:27)
[2016-06-28] MEDS: POLYETHYLENE GLYCOL 3350 17 GM PACKET. PO SCH (08:28)
[2016-06-28] MEDS: ASCORBIC ACID 500 MG TABLET PO SCH (08:28)
[2016-06-28] MEDS: HYDROCODONE/APAP 10/325 TABLET. PO SCH ×4 (08:28→22:51)
[2016-06-28] MEDS: DILTIAZEM HCL 30 MG TABLET PO SCH ×2 (08:29→23:26)
[2016-06-28] MEDS: DIAZEPAM 5 MG TABLET PO SCH ×2 (08:29→21:00)
[2016-06-28] MEDS: METOPROLOL TART IMMED RELEASE 25 MG TABLET PO SCH ×2 (08:29→22:54)
[2016-06-28] MEDS: AMIODARONE HCL 200 MG TABLET PO SCH (08:29)
[2016-06-28] MEDS: FERROUS SULFATE 325 MG TABLET PO SCH (08:29)
[2016-06-28 11:14] VITALS: BP 121/56
[2016-06-28] MEDS ORDERED: LEVO250T25 PO (12:37)
[2016-06-28 15:15] VITALS: BP 111/54
[2016-06-28 19:56] VITALS: BP 114/50
[2016-06-28] MEDS: rOPINIRole 0.25 MG TABLET. PO SCH (22:55)
[2016-06-28 23:38] VITALS: BP 122/45
--- NOTE | 2016-06-29 00:53 | DS ---
DATE OF DISCHARGE: 06/28/2016 ADMITTING DIAGNOSIS: Mechanical fall with contusion to head with blunt head trauma. SECONDARY DIAGNOSES: 1. Hospital-acquired pneumonia. 2. Urinary tract infection. 3. Anemia. 4. Right foot fracture. CHRONIC DIAGNOSES: Hypertension, osteoarthritis, high cholesterol, aortic stenosis, atrial fibrillation, left ventricular hypertrophy, hypothyroidism, macular degeneration, mild dementia, tachybrady syndrome with sick sinus syndrome and pacemaker placement. HISTORY OF PRESENT ILLNESS AND HOSPITAL COURSE: This patient is an 85-year-old female who is in assisted living at [facility], sustained a fall and came to the Emergency Room because she was unable to care for herself. She was found to have a facility-acquired pneumonia and was treated with IV antibiotics. She was also found to have a UTI via UA. She was also found to be profoundly anemic requiring transfusion during hospital stay due to hypotension. The patient improved with IV antibiotics and supportive care. She received 2 units of packed red blood cells and hemoglobin remained stable. PT and OT modalities were begun and postop shoe was given for right foot fracture. The patient improved to the point where she was able to switch to p.o. medications, but was still unable to care for herself. Therefore, [facility] recommendation was made and the patient was transferred to [facility] for continued PT and OT modalities. RAMONA CABRAL MD DR: LUCIANO/sruthi JOB#: [id number] / [id number]
[2016-06-29 03:11] VITALS: BP 116/49
[2016-06-29] MEDS ORDERED: LEVOFLOXACIN 250 MG TABLET. PO SCH (06:00)
[2016-06-29] MEDS: LEVOTHYROXINE 50 MCG TABLET PO SCH (06:10)
[2016-06-29 07:00] VITALS: BP 145/57
[2016-06-29] MEDS: VITAMIN E 200 UNIT CAPSULE. PO SCH (10:25)
[2016-06-29] MEDS: ASCORBIC ACID 500 MG TABLET PO SCH (10:25)
[2016-06-29] MEDS: FERROUS SULFATE 325 MG TABLET PO SCH (10:25)
[2016-06-29] MEDS: AMIODARONE HCL 200 MG TABLET PO SCH (10:26)
[2016-06-29] MEDS: FUROSEMIDE 20 MG TABLET PO SCH (10:26)
[2016-06-29] MEDS: HYDROCODONE/APAP 10/325 TABLET. PO SCH ×2 (10:27→13:00)
[2016-06-29] MEDS: DILTIAZEM HCL 30 MG TABLET PO SCH (10:27)
[2016-06-29] MEDS: METOPROLOL TART IMMED RELEASE 25 MG TABLET PO SCH (10:28)
[2016-06-29] MEDS: POLYETHYLENE GLYCOL 3350 17 GM PACKET. PO SCH (10:28)
[2016-06-29] MEDS: DIAZEPAM 5 MG TABLET PO SCH (10:28)
[2016-06-29 11:00] VITALS: BP 139/59
== END 2016-06-29 14:30 | DRG 871 ==
LOC: ER 04:15 → 4 NORTH 05:41
PROVIDERS: ADMIT Family Medicine; ATTEND Family Medicine
PROC: 30233N1 Transfusion of Nonautologous Red Blood Cells into Peripheral Vein, Percutaneous Approach (ICD-10-PCS; principal; 2016-06-23)
DX: A41.9 Sepsis, unspecified organism (principal); J18.9 Pneumonia, unspecified organism; N39.0 Urinary tract infection, site not specified; S92.324A Nondisplaced fracture of second metatarsal bone, right foot, initial encounter for closed fracture; E03.9 Hypothyroidism, unspecified; E78.00 Pure hypercholesterolemia, unspecified; S09.90XA Unspecified injury of head, initial encounter; F03.90 Unspecified dementia, unspecified severity, without behavioral disturbance, psychotic disturbance, mood disturbance, and anxiety; H35.30 Unspecified macular degeneration; I10 Essential (primary) hypertension; I35.0 Nonrheumatic aortic (valve) stenosis; I48.91 Unspecified atrial fibrillation; K59.00 Constipation, unspecified; I49.5 Sick sinus syndrome; M19.90 Unspecified osteoarthritis, unspecified site; F41.9 Anxiety disorder, unspecified; I95.9 Hypotension, unspecified; D50.9 Iron deficiency anemia, unspecified; Y95 Nosocomial condition; W06.XXXA Fall from bed, initial encounter; Z95.0 Presence of cardiac pacemaker; Z88.2 Allergy status to sulfonamides; Y93.89 Activity, other specified; Y92.122 Bedroom in nursing home as the place of occurrence of the external cause; Y99.8 Other external cause status
CPT/HCPCS: 36415; 70450; 71010; 73502; 73620; 80048; 80053; 80202; 81001; 82607; 82728; 82746; 83540; 83550; 83605; 85007; 85027; 85045; 86850; 86900; 86901; 86920; 87040; 87086; 87641; 93005; 94640; 96365; J1940; J1956; J2543; J3370; J7030; J7040; J7050; J7620; P9016; 97110; 97530; 97535; 99285-25

== ENCOUNTER 2016-08-22 19:47 | Emergency (ER) | payer BC ==
[~2016-08-22 19:47] MED LIST changes: +AMIO200T2 PO; +ASPI-612 PO; -ASPI81TA9 PO; +DILT30TA26 PO; +DOCU-109 PO; -DOCU-27 PO; -ERGO500012 PO; +ERGO500027 PO; +FURO20TA3 PO; -HYDR-2672 PO; +HYDR-2766 PO; +HYDR-963 PO; +LEVO250T25 PO; -PENI250T2 PO; +PENI250T85 PO; +POLY17PO29 PO; -POLY17PO5 PO; +VITA100022 PO
--- NOTE | 2016-08-22 21:14 | PHYS DOC ---
Past Medical History Past Medical History: A-Fib, Anemia, Anxiety, High Cholesterol, Hypertension, Hypothyroid, Other Additional Past Medical Histor: HEART VALVE DISEASE Past Surgical History: Pacemaker, Other Additional Past Surgical Histo: umbilicial surgery, back surgery,DEFIBRILLATOR Alcohol Use: None Drug Use: None Adult General Chief Complaint Chief Complaint: TRAUMA ALERT HPI HPI Patient is a 85 year old female who presents with complaint of head injury and right knee pain. The patient is wheelchair-bound and was reportedly reaching out for a towel when she lost her balance in the wheelchair and fell forward, hitting the top of her head on the door as she fell forward. Patient states that she has mild headache and right knee pain currently. Patient denies any loss of consciousness. Patient is currently on Eliquis therapy due to history of A. fib. Due to head injury, the patient was transferred to the emergency department from [facility] for evaluation. Patient states that she has chronic knee pain especially in her right lower extremity which is secondary to arthritis. Patient states however she is having more pain both above and below her knee. Patient states that she took a hydrocodone tablet prior to her fall, though she states her pain is manageable at this time and is not requesting pain medication. Review of Systems Review of Systems Constitutional: Denies fever or chills [] Eyes: Denies change in visual acuity, redness, or eye pain [] HENT: Head injury, denies nasal congestion or sore throat [] Respiratory: Denies cough or shortness of breath [] Cardiovascular: Denies chest pain or edema [] GI: Denies abdominal pain, nausea, vomiting, bloody stools or diarrhea [] : Denies dysuria or hematuria [] Musculoskeletal: Right lower extremity pain [] Integument: Denies rash or skin lesions [] Neurologic: Headache, denies focal weakness or sensory changes [] Current Medications Current Medications Current Medications Medications (Trade) Dose Ordered Sig/Josephine Start Time Stop Time Status Last Admin Dose Admin Fentanyl Citrate (Fentanyl 2ml Vial) 25 mcg 1X ONCE 08/22/16 22:00 08/22/16 22:01 DC 08/22/16 22:15 25 MCG Ondansetron HCl (Zofran) 4 mg 1X ONCE 08/22/16 22:00 08/22/16 22:01 DC 08/22/16 22:14 4 MG Allergies Allergies Allergies Coded Allergies Type Severity Reaction Last Updated Verified No Known Allergies Allergy Unknown 02/17/16 Yes sulfur dioxide Adverse Reaction Intermediate COUGH 11/27/14 Yes Physical Exam Physical Exam Constitutional: Alert, afebrile, no acute distress. [] HENT: Normocephalic, mild soft tissue swelling along superior aspect of forehead , bilateral external ears normal, oropharynx moist, no oral exudates, nose normal. [] Eyes: PERRLA, EOMI, conjunctiva normal, no discharge. [] Neck: C-collar placed by nursing staff, trachea midline, supple, no stridor. [] Cardiovascular:Heart rate regular rhythm, no murmur [] Lungs & Thorax: Bilateral breath sounds clear to auscultation [] Abdomen: Bowel sounds normal, soft, no tenderness, no masses, no pulsatile masses. [] Skin: Warm, dry, no erythema, no rash. [] Back: No tenderness, no CVA tenderness. [] Extremities: Chronic bilateral knee deformities present, ecchymosis and abrasion over right knee, tenderness palpation along right middle thigh and middle aspect of right lower leg, no clubbing, pulse 2+ distal to site of injury. [] Neurologic: Alert and oriented X 3, normal motor function, normal sensory function, no focal deficits noted. [] Current Patient Data Vital Signs Vital Signs Date Time Temp Pulse Resp B/P Pulse Ox O2 Delivery O2 Flow Rate FiO2 08/22/16 22:45 80 13 113/64 98 Nasal Cannula 2 08/22/16 19:47 98.4 98.4 EKG EKG Not performed [] Radiology/Procedures Radiology/Procedures Two-view right femur x-ray interpreted by me: No fractures, no dislocations, severe degenerative disease in right knee Two-view right tibia/fibula x-ray interpreted by me: No fractures, no dislocations, normal alignment AP pelvis and 2 view right hip interpreted by me: Moderate to severe degenerative disease of right hip joint, no fractures, no dislocations [facility] [address] [place], [place] [id number] IMAGING REPORT Signed PATIENT: KATHERINE AMADO V ACCOUNT: [id number] : 1930 LOCATION: ER AGE: 85 SEX: F EXAM STATUS: REG ER ORD. PHYSICIAN: SUMI BANDA MD REASON: fall, head injury, neck pain PROCEDURE: CT HEAD AND CERVICAL SPINE WO Examination: CT head and cervical spine without contrast. HISTORY History of fall, head injury, neck pain. COMPARISON None available. TECHNIQUE Axial CT images of the head were performed without contrast. Axial CT images of the cervical spine were performed without contrast. Coronal and sagittal reformats were performed Findings : There is no evidence of midline shift. There is no acute intracranial bleed or extra-axial fluid collection identified. There is a large scalp hematoma identified in the right frontal region likely secondary to soft tissue injury. There is complete opacification of the left maxillary sinus likely due to sinus disease. The vertebral body heights are maintained. There is a minimal 2 millimeter anterolisthesis of C2 on C3. There is moderate intervertebral disc height loss identified at C4-C5, C5-C6, C6-C7 vertebral levels with the bilateral facets are well aligned. No obvious acute fracture visualized. Minimal ground-glass opacity in the right apical lung. IMPRESSION - No acute intracranial findings. - Large frontal scalp hematoma identified. - No acute fracture of the cervical spine. Correlate clinically. - Minimal anterolisthesis of C2 on C3. - Moderate degenerative changes cervical spine. Electronically signed by: Marvin Guerrero (Aug 22, 2016 21:33:34) DICTATED and SIGNED BY: MARVIN GUERRERO MD DATE: 08/22/162132 CC: SUMI BANDA MD; NAYELY PEREZ MD ~ [] Course & Med Decision Making Course & Med Decision Making Pertinent Labs and Imaging studies reviewed. (See chart for details) Patient's head CT negative for acute intracranial bleeding. Patient did reveal evidence of a scalp hematoma. Cryotherapy was applied to the hematoma and patient was given IV fentanyl and Zofran while in the emergency department. The patient's vital signs are stable and patient is appropriate for transfer back to her [facility] facility. Advise follow-up with patient's primary doctor in 3-4 days and return to emergency department for any worsening symptoms. Patient and patient's daughter voiced understanding and in agreement with treatment plan. Dragon Disclaimer Dragon Disclaimer This electronic medical record was generated, in whole or in part, using a voice recognition dictation system. Departure Departure Impression: Primary Impression: Closed head injury Additional Impressions: Scalp hematoma Contusion of right knee Disposition: 05 TRANSFER OTHER Condition: STABLE Referrals: NAYELY PEREZ MD (PCP) Patient Instructions: Contusion, Head Injury, Adult, Scalp Hematoma Additional Instructions: Follow-up with primary doctor in the next 3-4 days. Return to emergency department for any worsening symptoms. Problem Qualifiers Primary Impression: Closed head injury Encounter type: initial encounter Qualified Code: S09.90XA - Unspecified injury of head, initial encounter Additional Impressions: Scalp hematoma Encounter type: initial encounter Qualified Code: S00.03XA - Contusion of scalp, initial encounter Contusion of right knee Encounter type: initial encounter Qualified Code: S80.01XA - Contusion of right knee, initial encounter SUMI BANDA MD Aug 22, 2016 21:13
--- NOTE | 2016-08-22 21:34 | RAD ---
Examination: CT head and cervical spine without contrast. HISTORY History of fall, head injury, neck pain. COMPARISON None available. TECHNIQUE Axial CT images of the head were performed without contrast. Axial CT images of the cervical spine were performed without contrast. Coronal and sagittal reformats were performed Findings : There is no evidence of midline shift. There is no acute intracranial bleed or extra-axial fluid collection identified. There is a large scalp hematoma identified in the right frontal region likely secondary to soft tissue injury. There is complete opacification of the left maxillary sinus likely due to sinus disease. The vertebral body heights are maintained. There is a minimal 2 millimeter anterolisthesis of C2 on C3. There is moderate intervertebral disc height loss identified at C4-C5, C5-C6, C6-C7 vertebral levels with the bilateral facets are well aligned. No obvious acute fracture visualized. Minimal ground-glass opacity in the right apical lung. IMPRESSION - No acute intracranial findings. - Large frontal scalp hematoma identified. - No acute fracture of the cervical spine. Correlate clinically. - Minimal anterolisthesis of C2 on C3. - Moderate degenerative changes cervical spine. Electronically signed by: Marvin Guerrero (Aug 22, 2016 21:33:34)
[2016-08-22] MEDS ORDERED: fentaNYL PF VIAL 100 MCG/2 ML VIAL IV ONE (22:00)
[2016-08-22] MEDS ORDERED: ONDANSETRON PF 4 MG/2 ML VIAL. IV ONE (22:00)
[2016-08-22 23:30] VITALS: BP 138/65
--- NOTE | 2016-08-23 06:52 | EKG ---
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
--- NOTE | 2016-08-23 08:53 | RAD ---
Pelvis with right hip radiographs, right femur radiographs History: Fall today. Comparison: Pelvis with right hip radiographs 06/23/2016. Findings: AP view of the pelvis. AP and frog-leg views of the right hip. No acute fracture or dislocation is identified. Soft tissue calcification is again seen proximal to the greater trochanter. AP and lateral views of the right femur. No acute fracture or acute malalignment is identified. Advanced tricompartment degeneration is seen involving the knee. Impression: No acute osseous traumatic injury identified in the pelvis, right hip, or right knee.
--- NOTE | 2016-08-23 08:56 | RAD ---
Right kidney and fibula radiographs History: Fall, pain. Comparison: None. Findings: AP and lateral views of the right tibia and fibula. Osseous structures appear demineralized. No acute fracture or acute malalignment is identified. Impression: No acute osseous traumatic injury identified.
== END 2016-08-22 23:45 | disposition short-term general hospital (02) ==
LOC: ER 19:47
DX: S00.03XA Contusion of scalp, initial encounter (principal); S80.01XA Contusion of right knee, initial encounter; E03.9 Hypothyroidism, unspecified; E78.00 Pure hypercholesterolemia, unspecified; F41.9 Anxiety disorder, unspecified; G89.29 Other chronic pain; I10 Essential (primary) hypertension; I48.91 Unspecified atrial fibrillation; Z95.0 Presence of cardiac pacemaker; Z99.3 Dependence on wheelchair
CPT/HCPCS: 17110; 70450; 72125; 73502; 73552; 73590; 96374; 96375; 99285; J2405; J3010; 93005; 99284-25

== ENCOUNTER 2017-04-11 14:03 | Inpatient (IN) | payer BC ==
[~2017-04-11] VITALS: Ht 170.2 cm; Wt 72.8 kg
--- NOTE | 2017-04-11 14:25 | PHYS DOC ---
Past Medical History Past Medical History: A-Fib, Anemia, Anxiety, High Cholesterol, Hypertension, Hypothyroid, Other Additional Past Medical Histor: HEART VALVE DISEASE Past Surgical History: Pacemaker, Other Additional Past Surgical Histo: umbilicial surgery, back surgery,DEFIBRILLATOR Alcohol Use: None Drug Use: None Adult General Chief Complaint Chief Complaint: WEAKNESS/GENERALIZED HPI HPI Patient is a 86 year old F who presents with decreased activity and weakness. Daughter states they went to the enamel machine operator this morning to have the pacemaker checked and since they were out decided to come the emergency room because the patient over the past couple days has had decreased activity, decreased appetite, and increased generalized weakness and just not acting herself. Daughter states that last week patient complained of some abdominal pain mostly on the left side. Daughter declines any fevers or any cough/cold/ congestion. Patient has no complaints in the emergency room. Patient denies any chest pain or shortness of breath. Review of Systems Review of Systems GEN: Generalized weakness HEENT: Denies blurred vision, sore throat CV: Denies chest pain RESP: Denies shortness of air, cough GI: Denies n/v/d NEURO: Denies confusion, dizziness MSK: Denies weakness, joint pain/swelling All other systems were reviewed and found to be within normal limits, except as documented in this note. Current Medications Current Medications Current Medications Medications (Trade) Dose Ordered Sig/Josephine Start Time Stop Time Status Last Admin Dose Admin Aspirin (Children'S Aspirin) 324 mg 1X ONCE 04/11/17 15:45 04/11/17 15:46 DC Ceftriaxone Sodium 50 ml @ 100 mls/hr 1X ONCE 04/11/17 16:00 04/11/17 16:29 Allergies Allergies Allergies Coded Allergies Type Severity Reaction Last Updated Verified No Known Allergies Allergy Unknown 02/17/16 Yes sulfur dioxide Adverse Reaction Intermediate COUGH 11/27/14 Yes Physical Exam Physical Exam GEN.: No apparent distress. Alert and oriented. HEENT: Head is normocephalic, atraumatic NECK: Supple. LUNGS: CTAB. HEART: RRR, 3/6 mid systolic click. Peripheral pulses intact ABDOMEN: Soft, nontender. Positive bowel sounds. EXTREMITIES: Without any cyanosis. NEUROLOGIC: Normal speech, normal tone PSYCHIATRIC: Normal affect, normal mood. SKIN: No ulcerations Current Patient Data Vital Signs Vital Signs Date Time Temp Pulse Resp B/P (MAP) Pulse Ox O2 Delivery O2 Flow Rate FiO2 04/11/17 14:16 97.4 73 18 142/74 (96) 92 Room Air 97.4 Lab Values Laboratory Tests Test 04/11/17 14:25 04/11/17 15:20 White Blood Count 15.1 x10^3/uL (4.0-11.0) H Red Blood Count 3.97 x10^6/uL (3.50-5.40) Hemoglobin 12.1 g/dL (12.0-15.5) Hematocrit 37.0 % (36.0-47.0) Mean Corpuscular Volume 93 fL (79-100) Mean Corpuscular Hemoglobin 31 pg (25-35) Mean Corpuscular Hemoglobin Concent 33 g/dL (31-37) Red Cell Distribution Width 12.8 % (11.5-14.5) Platelet Count 387 x10^3/uL (140-400) Neutrophils (%) (Auto) 82 % (31-73) H Lymphocytes (%) (Auto) 8 % (24-48) L Monocytes (%) (Auto) 9 % (0-9) Eosinophils (%) (Auto) 1 % (0-3) Basophils (%) (Auto) 1 % (0-3) Neutrophils # (Auto) 12.3 x10^3uL (1.8-7.7) H Lymphocytes # (Auto) 1.2 x10^3/uL (1.0-4.8) Monocytes # (Auto) 1.3 x10^3/uL (0.0-1.1) H Eosinophils # (Auto) 0.1 x10^3/uL (0.0-0.7) Basophils # (Auto) 0.1 x10^3/uL (0.0-0.2) Sodium Level 134 mmol/L (136-145) L Potassium Level 4.7 mmol/L (3.5-5.1) Chloride Level 95 mmol/L (98-107) L Carbon Dioxide Level 30 mmol/L (21-32) Anion Gap 9 (6-14) Blood Urea Nitrogen 21 mg/dL (7-20) H Creatinine 1.1 mg/dL (0.6-1.0) H Estimated GFR (Cockcroft-Gault) 47.0 BUN/Creatinine Ratio 19 (6-20) Glucose Level 131 mg/dL (70-99) H Calcium Level 9.0 mg/dL (8.5-10.1) Total Bilirubin 0.3 mg/dL (0.2-1.0) Aspartate Amino Transferase (AST) 40 U/L (15-37) H Alanine Aminotransferase (ALT) 27 U/L (14-59) Alkaline Phosphatase 141 U/L (46-116) H Troponin I Quantitative 0.114 ng/mL (0.000-0.055) Total Protein 7.4 g/dL (6.4-8.2) Albumin 3.0 g/dL (3.4-5.0) L Albumin/Globulin Ratio 0.7 (1.0-1.7) L Lipase 81 U/L (73-393) Lactic Acid Level 0.9 mmol/L (0.4-2.0) Laboratory Tests 04/11/17 14:25 Laboratory Tests 04/11/17 14:25 EKG EKG 1417: EKG shows normal sinus rhythm rate of 76 no STEMI, left branch block[] Radiology/Procedures Radiology/Procedures Chest x-ray NAD[] Course & Med Decision Making Course & Med Decision Making Pertinent Labs and Imaging studies reviewed. (See chart for details) ED course: Patient was seen and examined emergency room septic workup was ordered Patient is family are updated on lab results and plan to admit for UTI with sepsis Patient has elevated troponin however I do not believe the patient having acute IA and believe the troponin is elevated secondary to the UTI with sepsis 1607: Discussed CC/HP/PMH with Dr. Perez and recommends admit MDM: After reviewing the chart, CC/HPI/PMH, physical exam, [lab results], [ radiological results], I believe the patient has an acute UTI with sepsis and the elevated troponin. I believe the troponin is elevated secondary to sepsis and there is no signs of a STEMI on EKG. [] Dragon Disclaimer Dragon Disclaimer This electronic medical record was generated, in whole or in part, using a voice recognition dictation system. Departure Departure Impression: Primary Impression: UTI (urinary tract infection) Additional Impressions: Sepsis Elevated troponin Disposition: 09 ADMITTED INPATIENT Admitting Physician: Sole Perez Condition: STABLE Referrals: Kathryn PEREZ MD (PCP) Problem Qualifiers LANDRY MARTINEZ DO Apr 11, 2017 14:25
[2017-04-11 14:42] LABS: BASO # 0.1 x10^3/uL (0.0-0.2); BASO % 1 % (0-3); EOS % 1 % (0-3); HEMOGLOBIN 12.1 g/dL (12.0-15.5); LYMPH # 1.2 x10^3/uL (1.0-4.8); LYMPH % 8 % (24-48); MEAN CORPUSCULAR HEMOGLOBIN 31 pg (25-35); MEAN CORPUSCULAR HGB CONC 33 g/dL (31-37); MEAN CORPUSCULAR VOLUME 93 fL (79-100); MONO % 9 % (0-9); NEUT % 82 % (31-73); PLATELET COUNT 387 x10^3/uL (140-400); RED BLOOD COUNT 3.97 x10^6/uL (3.50-5.40); RED CELL DISTRIBUTION WIDTH 12.8 % (11.5-14.5); WHITE BLOOD COUNT 15.1 x10^3/uL (4.0-11.0)
[2017-04-11 14:43] LABS: CREATININE 1.1 mg/dL (0.6-1.0); POTASSIUM 4.7 mmol/L (3.5-5.1)
[2017-04-11 14:46] LABS: ALBUMIN/GLOBULIN RATIO 0.7 (1.0-1.7); TOTAL BILIRUBIN 0.3 mg/dL (0.2-1.0); TOTAL PROTEIN 7.4 g/dL (6.4-8.2)
--- NOTE | 2017-04-11 14:56 | EKG ---
[facility] [address] [place] [address] Test Date: 2017-04-11 Test Time: 14:16:10 Pat Name: KATHERINE AMADO Department: Room: Gender: F Extrusion Supervisor: : 1930 Requested By: LANDRY MARTINEZ Order Number: [id number] Reading MD: Anthony Morris MD Measurements Intervals [place] Rate: 76 P: -116 LA: 134 QRS: -74 QRSD: 170 T: 72 QT: 442 QTc: 502 Interpretive Statements SINUS RHYTHM LBBB Electronically Signed On 04-18-2017 14:05:31 PARACHUTE MARKER by Anthony Morris MD
--- NOTE | 2017-04-11 15:02 | RAD ---
Indication: Weakness and lethargy. Technique: Upright portable chest radiograph was obtained. Comparison is from June 23, 2016. Findings: Study is a lordotic film. The lungs are clear. The heart is not enlarged. There is no heart failure. Pacemaker is noted. Leads overlie the patient. There are degenerative changes in the shoulders. Impression: No acute thoracic findings. Lordotic film.
[2017-04-11] MEDS ORDERED: ASPIRIN CHEWABLE 81 MG TABLET. PO ONE (15:45)
[2017-04-11 16:03] LABS: BILIRUBIN,URINE NEGATIVE (NEG); GLUCOSE,URINE NEGATIVE (NEG); NITRITE,URINE POSITIVE (NEG); PH,URINE 5.5; PROTEIN,URINE 30 mg/dL (NEG-TRACE)
[2017-04-11] MEDS ORDERED: ACETAMINOPHEN 325 MG TABLET. PO PRN (16:15)
[2017-04-11] MEDS ORDERED: ONDANSETRON PF 4 MG/2 ML VIAL. IV PRN (16:15)
[2017-04-11] MEDS ORDERED: fentaNYL PF VIAL 100 MCG/2 ML VIAL IV PRN (16:15)
[2017-04-11 16:21] LABS: BACTERIA,URINE MODERATE /HPF (0-FEW); SQUAMOUS EPITHELIAL CELL,UR OCC /LPF; WBC,URINE TNTC /HPF (0-4)
[2017-04-11] MEDS ORDERED: POLYETHYLENE GLYCOL 3350 17 GM PACKET. PO PRN (18:00)
[2017-04-11 20:33] VITALS: BP 119/61
[2017-04-11] MEDS: dilTIAZem HCL 30 MG TABLET PO SCH (21:35)
[2017-04-11] MEDS: APIXABAN 5 MG TABLET. PO SCH (21:35)
[2017-04-11] MEDS: METOPROLOL TART IMMED RELEASE 25 MG TABLET. PO SCH (21:36)
[2017-04-11] MEDS: diazePAM 5 MG TABLET PO SCH (21:36)
[2017-04-11] MEDS: rOPINIRole 0.25 MG TABLET. PO SCH (21:36)
[2017-04-11 23:21] VITALS: BP 102/55
[2017-04-12 03:31] VITALS: BP 124/68
[2017-04-12 05:29] LABS: BASO % 0 % (0-3); EOS % 3 % (0-3); HEMATOCRIT 36.7 % (36.0-47.0); LYMPH # 0.6 x10^3/uL (1.0-4.8); LYMPH % 5 % (24-48); MEAN CORPUSCULAR HEMOGLOBIN 30 pg (25-35); MEAN CORPUSCULAR HGB CONC 33 g/dL (31-37); MEAN CORPUSCULAR VOLUME 92 fL (79-100); MONO % 12 % (0-9); NEUT % 80 % (31-73); PLATELET COUNT 332 x10^3/uL (140-400); RED BLOOD COUNT 3.97 x10^6/uL (3.50-5.40); RED CELL DISTRIBUTION WIDTH 13.1 % (11.5-14.5); WHITE BLOOD COUNT 10.6 x10^3/uL (4.0-11.0)
[2017-04-12] MEDS: LEVOTHYROXINE 50 MCG TABLET PO SCH (05:33)
[2017-04-12 06:24] LABS: CALCIUM 8.9 mg/dL (8.5-10.1); CREATININE 0.8 mg/dL (0.6-1.0); GFR 67.8; POTASSIUM 4.3 mmol/L (3.5-5.1)
[2017-04-12 07:00] VITALS: BP 122/57
[2017-04-12] MEDS: ASPIRIN ENTERIC COATED 81 MG TABLET.DR. PO SCH (09:36)
[2017-04-12] MEDS: METOPROLOL TART IMMED RELEASE 25 MG TABLET. PO SCH ×2 (09:36→21:20)
[2017-04-12] MEDS: dilTIAZem HCL 30 MG TABLET PO SCH ×2 (09:36→21:20)
[2017-04-12] MEDS: APIXABAN 5 MG TABLET. PO SCH ×2 (09:36→21:19)
[2017-04-12] MEDS: FUROSEMIDE 20 MG TABLET PO SCH (09:36)
[2017-04-12] MEDS: ASCORBIC ACID 500 MG TABLET PO SCH (09:37)
[2017-04-12] MEDS: VITAMIN E 200 UNIT CAPSULE. PO SCH (09:37)
[2017-04-12] MEDS: diazePAM 5 MG TABLET PO SCH ×2 (09:37→21:19)
[2017-04-12] MEDS: AMIODARONE HCL 200 MG TABLET. PO SCH (09:37)
[2017-04-12] MEDS: FERROUS SULFATE 325 MG TABLET. PO SCH (09:37)
[2017-04-12 11:00] VITALS: BP 128/62
[2017-04-12] MEDS: HYDROcodone/APAP 10/325 1 TAB TABLET PO PRN ×2 (11:22→16:26)
[2017-04-12] MEDS: cefTRIAXone IV Push 1 GM VIAL. IVP SCH (11:22)
[2017-04-12 15:00] VITALS: BP 108/57
[2017-04-12] MEDS: ANTI-COAG MONITOR BY PHARMACY. MC PRN (15:02)
[2017-04-12] MEDS: DICLOFENAC SODIUM 1% TOPICAL GEL 100GM TUBE. TP SCH ×2 (15:41→21:19)
--- NOTE | 2017-04-12 16:16 | HP ---
ADMIT DATE: 04/11/2017 ADMISSION DIAGNOSIS: Sepsis, weakness. HISTORY OF PRESENT ILLNESS: This is an 86-year-old white female who had gone to her multifold operator for pacemaker check. She has been weak with poor appetite and just not acting herself over the last several days. Her daughter noticed it more with her appointment and instead of going back to [facility], came to the Emergency Room for further evaluation. She has a long history of urinary tract infections. She was not having chest pain, shortness of breath, fever or chills. She has had some recent abdominal pain, mainly on her left side. In the ER, though she was found to have a urinary tract infection and is admitted and is on IV antibiotics. 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 PAST SURGICAL HISTORY: Include AICD placement, umbilical hernia repair, prior lumbar laminectomy, tonsil and adenoidectomy. ALLERGIES: She has an allergy to SULFUR DIOXIDE. FAMILY HISTORY: Positive for diabetes, heart disease, alcoholism and tobaccoism. SOCIAL HISTORY: She does not drink or smoke. She resides at [facility]. They typically get her up with assistance for meals. She is pretty much bed bound or wheelchair bound though. ROUTINE MEDICATIONS: Include amiodarone 200 mg daily, Eliquis 5 mg b.i.d., vitamin C 500 mg daily, aspirin 81 daily, diazepam 5 mg b.i.d., diltiazem 30 mg b.i.d., vitamin D2 50,000 units weekly, iron sulfate 325 mg daily, furosemide 20 mg daily, hydrocodone/APAP 1 q.4 hours p.r.n. moderate to severe pain, levothyroxine 50 mcg daily, metoprolol 25 mg b.i.d., MiraLax 17 grams daily, ropinirole 0.25 mg at bedtime, vitamin E 1000 units daily. REVIEW OF SYSTEMS: CONSTITUTIONAL: No fever or chills. She is unaware of any weight loss or gain. She does see poorly. CARDIOVASCULAR: Negative for chest pain or palpitations. PULMONARY: Negative for cough or shortness of breath. GASTROINTESTINAL: Negative for nausea or vomiting, but is positive for some recent left lower side abdominal discomfort. No diarrhea or change in her bowels. GENITOURINARY: Positive for incontinence. MUSCULOSKELETAL: Positive for contractures from immobility. SKIN: Positive for sacral decubitus ulcer present on admission. NEUROLOGIC: Negative for headaches or seizures. MUSCULOSKELETAL: Positive for generalized weakness. PHYSICAL EXAMINATION: VITAL SIGNS: Temperature 97.8, heart rate 68, respiratory rate 20, blood pressure 128/62. She is 95% saturated on room air. GENERAL: She is alert. She recognizes me. She knows she is in the hospital. Her daughter is present. HEENT: Remarkable for poor vision. Mouth is dry. Lips are not cracked though. NECK: Supple. HEART: Regular rate and rhythm with a 4/6 systolic ejection murmur. LUNGS: Have some crackles on the right. ABDOMEN: Obese, soft, nondistended, nontender. EXTREMITIES: Without clubbing, cyanosis or edema. LABORATORY STUDIES: White count 15.1, has come down to 10.6 with antibiotics. Her hemoglobin stayed stable at 12. Chemistries: Electrolytes are unremarkable. BUN is 18, creatinine is 0.8, glucose 122. Troponin went up to 0.082, but is back down to 0.056. Lactic acid was 0.9. Urinalysis showed yellow color, but cloudy, pH of 5.5, moderate blood, positive nitrites, large amount of leukocyte esterase, 3-5 rbc's, too numerous to count white cells, occasional squamous epithelial cell, moderate bacteria. Urine culture is growing gram-negative rods at 50-100,000 CFU. Chest x-ray shows no acute findings. Her pacemaker is noted. ASSESSMENT: 1. Urinary tract infection with early sepsis and weakness. 2. Chronic debility. 3. Severe aortic stenosis. PLAN: She is admitted. She is currently on IV Rocephin, which will be continued. Her white count has improved. We will await her culture. It does not look like there is much we can do for her cardiac zhou. Her troponin is up likely from some demand ischemia. Her pacemaker was just assessed and she saw the multifold operator yesterday without changes made. She is not likely to rehabilitate. She has been in her chronic state. No weakness for sometime now and will await her culture and sensitivity results, but anticipate transfer [facility] to [facility] in a day or two. W Philippe PEREZ MD DR: NIDIA/sruthi JOB#: [id number] / [id number]
[2017-04-12 19:30] VITALS: BP 110/63
[2017-04-12] MEDS: rOPINIRole 0.25 MG TABLET. PO SCH (21:19)
[2017-04-12] MEDS: LACTOBACILLUS RHAMNOSUS GG 1 CAPSULE. PO SCH (21:20)
[2017-04-12 23:30] VITALS: BP 118/70
[2017-04-13] VITALS (7 sets, daily range): BP systolic 102–141; BP diastolic 49–93
[2017-04-13] MEDS: LEVOTHYROXINE 50 MCG TABLET PO SCH ×2 (06:05→08:25)
--- NOTE | 2017-04-13 08:15 | PDOC ---
PROGRESS NOTES Subjective She slept well and feels stronger, no fever, no nausea, no chest pain, no SOA. No BM, no dysuria. Urine with bacturia Objective Afebrile General: NAD, awake and alert Heart: RRR with 4/6 murmur Lungs: CTA Abd: soft and non tender Ext: no edema, contractures of knees Vital Signs Vital Signs Date Time Temp Pulse Resp B/P (MAP) Pulse Ox O2 Delivery O2 Flow Rate FiO2 04/13/17 07:49 Room Air 04/13/17 03:30 97.4 69 18 122/93 (103) 93 97.4 I & O Intake and Output 04/13/17 06:59 Intake Total 2050 ml Balance 2050 ml Intake Oral 2050 ml # Voids 7 # Bowel Movements 4 Assessment and Plan (1) Elevated troponin Status: Acute (2) Sepsis Status: Acute (3) UTI (urinary tract infection) Status: Acute 1. Urinary tract infection with early sepsis and weakness - continue IV antibiotic, await C&S. 2. Chronic debility - PT/OT. 3. Severe aortic stenosis with abnormal troponin from demand ischemia. Problems: Kathryn PEREZ MD Apr 13, 2017 08:15
[2017-04-13] MEDS: dilTIAZem HCL 30 MG TABLET PO SCH ×2 (08:24→20:33)
[2017-04-13] MEDS: VITAMIN E 200 UNIT CAPSULE. PO SCH (08:25)
[2017-04-13] MEDS: ASCORBIC ACID 500 MG TABLET PO SCH (08:25)
[2017-04-13] MEDS: FUROSEMIDE 20 MG TABLET PO SCH (08:25)
[2017-04-13] MEDS: ASPIRIN ENTERIC COATED 81 MG TABLET.DR. PO SCH (08:25)
[2017-04-13] MEDS: APIXABAN 5 MG TABLET. PO SCH ×2 (08:25→20:38)
[2017-04-13] MEDS: LACTOBACILLUS RHAMNOSUS GG 1 CAPSULE. PO SCH ×2 (08:27→20:33)
[2017-04-13] MEDS: FERROUS SULFATE 325 MG TABLET. PO SCH (08:27)
[2017-04-13] MEDS: AMIODARONE HCL 200 MG TABLET. PO SCH (08:28)
[2017-04-13] MEDS: METOPROLOL TART IMMED RELEASE 25 MG TABLET. PO SCH ×2 (08:28→20:34)
[2017-04-13] MEDS: diazePAM 5 MG TABLET PO SCH ×2 (08:28→20:38)
[2017-04-13] MEDS: DICLOFENAC SODIUM 1% TOPICAL GEL 100GM TUBE. TP SCH ×2 (09:00→20:34)
[2017-04-13] MEDS: cefTRIAXone IV Push 1 GM VIAL. IVP SCH (11:26)
[2017-04-13] MEDS: ANTI-COAG MONITOR BY PHARMACY. MC PRN (13:28)
[2017-04-13] MEDS: HYDROcodone/APAP 10/325 1 TAB TABLET PO PRN (15:33)
[2017-04-13] MEDS: rOPINIRole 0.25 MG TABLET. PO SCH (20:32)
[2017-04-14 03:20] VITALS: BP 123/57
[2017-04-14 07:00] VITALS: BP 159/77
[2017-04-14] MEDS: ANTI-COAG MONITOR BY PHARMACY. MC PRN (08:36)
[2017-04-14] MEDS: DICLOFENAC SODIUM 1% TOPICAL GEL 100GM TUBE. TP SCH (09:00)
[2017-04-14] MEDS: VITAMIN E 200 UNIT CAPSULE. PO SCH (10:21)
[2017-04-14] MEDS: FUROSEMIDE 20 MG TABLET PO SCH (10:21)
[2017-04-14] MEDS: dilTIAZem HCL 30 MG TABLET PO SCH (10:21)
[2017-04-14] MEDS: ASCORBIC ACID 500 MG TABLET PO SCH (10:22)
[2017-04-14] MEDS: APIXABAN 5 MG TABLET. PO SCH (10:22)
[2017-04-14] MEDS: diazePAM 5 MG TABLET PO SCH (10:22)
[2017-04-14] MEDS: METOPROLOL TART IMMED RELEASE 25 MG TABLET. PO SCH (10:22)
[2017-04-14] MEDS: LACTOBACILLUS RHAMNOSUS GG 1 CAPSULE. PO SCH (10:22)
[2017-04-14] MEDS: FERROUS SULFATE 325 MG TABLET. PO SCH (10:22)
[2017-04-14] MEDS: AMIODARONE HCL 200 MG TABLET. PO SCH (10:23)
[2017-04-14] MEDS: ASPIRIN ENTERIC COATED 81 MG TABLET.DR. PO SCH (10:23)
[2017-04-14 11:00] VITALS: BP 110/64
[2017-04-18] MEDS ORDERED: ERGOCALCIFEROL (VITAMIN D2) 50,000 UNIT CAPSULE. PO SCH (09:00)
== END 2017-04-14 13:10 | DRG 872 ==
LOC: ER 14:03 → 2 NORTH 15:38
PROVIDERS: ADMIT Family Medicine; ATTEND Family Medicine
DX: A41.9 Sepsis, unspecified organism (principal); I24.8 Other forms of acute ischemic heart disease; I42.9 Cardiomyopathy, unspecified; N39.0 Urinary tract infection, site not specified; I48.2 Chronic atrial fibrillation; I35.0 Nonrheumatic aortic (valve) stenosis; R53.81 Other malaise; I10 Essential (primary) hypertension; E03.9 Hypothyroidism, unspecified; M19.90 Unspecified osteoarthritis, unspecified site; E78.00 Pure hypercholesterolemia, unspecified; H35.30 Unspecified macular degeneration; H54.7 Unspecified visual loss; Z95.810 Presence of automatic (implantable) cardiac defibrillator; Z99.3 Dependence on wheelchair; Z88.8 Allergy status to other drugs, medicaments and biological substances; Z79.01 Long term (current) use of anticoagulants; Z79.82 Long term (current) use of aspirin; Z79.899 Other long term (current) drug therapy; Z83.3 Family history of diabetes mellitus; Z82.49 Family history of ischemic heart disease and other diseases of the circulatory system; Z81.1 Family history of alcohol abuse and dependence
CPT/HCPCS: 36415; 71010; 80048; 80053; 81001; 82962; 83605; 83690; 84484; 85025; 87040; 87086; 87186; 87641; 93005; 96365; J0690; J0696; 99285-25

== ENCOUNTER 2017-05-17 23:13 | Inpatient (IN) | payer BC ==
[2017-05-17] MEDS: IPRATRPIUM/ALBUTEROL 0.5/2.5MG 3 ML NEBU. NEB (23:44)
[2017-05-17 23:57] LABS: ADD MAN DIFF? NO
[2017-05-18] LABS: BASO # 0.1 x10^3/uL (0.0-0.2); BASO % 1 % (0-3); EOS % 0 % (0-3); HEMATOCRIT 38.6 % (36.0-47.0); HEMOGLOBIN 12.5 g/dL (12.0-15.5); LYMPH # 0.8 x10^3/uL (1.0-4.8); LYMPH % 7 % (24-48); MEAN CORPUSCULAR HEMOGLOBIN 30 pg (25-35); MEAN CORPUSCULAR HGB CONC 32 g/dL (31-37); MEAN CORPUSCULAR VOLUME 92 fL (79-100); MONO # 0.9 x10^3/uL (0.0-1.1); MONO % 7 % (0-9); NEUT # 9.9 x10^3uL (1.8-7.7); NEUT % 84 % (31-73); PLATELET COUNT 269 x10^3/uL (140-400); RED BLOOD COUNT 4.19 x10^6/uL (3.50-5.40); RED CELL DISTRIBUTION WIDTH 15.6 % (11.5-14.5); WHITE BLOOD COUNT 11.7 x10^3/uL (4.0-11.0)
[2017-05-18] MEDS: IV NORMAL SALINE 1000ML BAG 1,000 ML IV ×3 (00:10→03:54)
[2017-05-18 00:17] LABS: TROPONINI 0.031 ng/mL (0.000-0.055)
[2017-05-18 00:21] LABS: THYROID STIM HORMONE (TSH) 4.159 uIU/mL (0.358-3.74)
[2017-05-18 00:23] LABS: ANION GAP 11 (6-14); BLOOD UREA NITROGEN 16 mg/dL (7-20); BUN/CREATININE RATIO 20 (6-20); CALCIUM 8.7 mg/dL (8.5-10.1); CARBON DIOXIDE 28 mmol/L (21-32); CHLORIDE 98 mmol/L (98-107); CREATININE 0.8 mg/dL (0.6-1.0); GFR 67.8; GLUCOSE 142 mg/dL (70-99); POTASSIUM 4.1 mmol/L (3.5-5.1); SODIUM 137 mmol/L (136-145)
[2017-05-18 00:28] LABS: ALBUMIN 3.3 g/dL (3.4-5.0); ALBUMIN/GLOBULIN RATIO 0.8 (1.0-1.7); ALK PHOS 108 U/L (46-116); ALT (SGPT) 15 U/L (14-59); AST (SGOT) 21 U/L (15-37); TOTAL BILIRUBIN 0.4 mg/dL (0.2-1.0); TOTAL PROTEIN 7.4 g/dL (6.4-8.2)
[2017-05-18 00:40] LABS: BILIRUBIN,URINE NEGATIVE (NEG); CLARITY,URINE TURBID; COLOR,URINE RED; GLUCOSE,URINE NEGATIVE (NEG); NITRITE,URINE POSITIVE (NEG); PROTEIN,URINE 100 mg/dL (NEG-TRACE)
[2017-05-18 00:48] LABS: BACTERIA,URINE FEW /HPF (0-FEW); RBC,URINE >40 /HPF (0-2); SQUAMOUS EPITHELIAL CELL,UR OCC /LPF; WBC,URINE >40 /HPF (0-4)
[2017-05-18 00:49] LABS: HYALINE CASTS, URINE FEW /HPF
[2017-05-18 01:17] LABS: LACTIC ACID 1.7 mmol/L (0.4-2.0)
[2017-05-18] MEDS: CLINDAMYCIN 600MG PREMIX 50 ML IV (01:24)
[2017-05-18] MEDS ORDERED: ONDANSETRON PF 4 MG/2 ML VIAL. IV (01:30)
[2017-05-18] MEDS: VANCOMYCIN 1.75 GM in IV DEXTROSE 5 %-0.2 % NACL 500 ML IV (02:01)
[2017-05-18] MEDS: CEFEPIME HCL IV Push 1 GM VIAL. IVP (02:25)
[2017-05-18] MEDS: ACETAMINOPHEN 650 MG SUPP.RECT. PR (02:34)
[2017-05-18] MEDS: VANCOMYCIN PER PHARMACY MC ×2 (03:21→15:03)
[2017-05-18] MEDS ORDERED: ALBUTEROL SULFATE 2.5 MG/3 ML NEBU. NEB (03:45)
[2017-05-18] MEDS ORDERED: ACETAMINOPHEN 325 MG SUPP.RECT. PR (04:00)
[2017-05-18] MEDS: IPRATRPIUM/ALBUTEROL 0.5/2.5MG 3 ML NEBU. NEB ×3 (04:09→20:29)
[2017-05-18] MEDS: methylPREDNISolone SOD SUCC PF 125 MG/2 ML VIAL. IV (04:11)
[2017-05-18 04:12] LABS: LACTIC ACID 1.4 mmol/L (0.4-2.0)
[2017-05-18] MEDS: IV NORMAL SALINE 250ML 250 ML IV (04:41)
[2017-05-18 05:08] LABS: INFLUENZA A PATIENT NEGATIVE (NEGATIVE); INFLUENZA B PATIENT NEGATIVE (NEGATIVE); OBC FLU VALID
[2017-05-18 05:38] LABS: NT-PRO BNP 11398 pg/mL (0-449)
[2017-05-18] MEDS ORDERED: CEFEPIME HCL 1 GM in IV DEXTROSE 5% 50 ML IV (06:00)
[2017-05-18] MEDS: FUROSEMIDE 40 MG/4 ML VIAL. IVP ×2 (06:19→12:28)
[2017-05-18 07:46] LABS: LACTIC ACID 2.1 mmol/L (0.4-2.0)
[2017-05-18 07:56] LABS: BASE EXCESS ABG -2 mmol/L (-3-3); HCO3 ABG 25 mmol/L (21-28); PCO2 ABG 50 mmHg (35-46); PH ABG 7.31 (7.35-7.45); PO2 ABG 146 mmHg (65-108); SAT O2 ABG 98 % (92-99)
[2017-05-18 07:58] LABS: FIO2 ABG 44
[2017-05-18 08:21] LABS: TROPONINI < 0.017 ng/mL (0.000-0.055)
[2017-05-18] MEDS ORDERED: POLYETHYLENE GLYCOL 3350 17 GM PACKET. PO (08:30)
[2017-05-18] MEDS ORDERED: HYDROcodone/APAP 10/325 1 TAB TABLET PO (08:30)
[2017-05-18] MEDS ORDERED: MEROPENEM 500 MG in IV NORMAL SALINE 50ML 50 ML IV (08:45)
[2017-05-18] MEDS: diazePAM 5 MG TABLET PO ×3 (09:00→23:17)
[2017-05-18] MEDS: AMIODARONE HCL 200 MG TABLET. PO (09:00)
[2017-05-18] MEDS: METOPROLOL TART IMMED RELEASE 25 MG TABLET. PO ×2 (09:00→21:00)
[2017-05-18 11:16] LABS: PROCALCITONIN < 0.10 ng/mL (0.00-0.10)
[2017-05-18] MEDS: LEVOTHYROXINE 50 MCG TABLET PO (12:26)
[2017-05-18] MEDS: ASCORBIC ACID 500 MG TABLET PO (12:26)
[2017-05-18] MEDS: APIXABAN 5 MG TABLET. PO (12:27)
[2017-05-18] MEDS: ASPIRIN ENTERIC COATED 81 MG TABLET.DR. PO (12:27)
[2017-05-18] MEDS: LACTOBACILLUS RHAMNOSUS GG 1 CAPSULE. PO ×2 (12:30→21:00)
[2017-05-18 12:35] LABS: BASE EXCESS ABG 3 mmol/L (-3-3); HCO3 ABG 29 mmol/L (21-28); PO2 ABG 104 mmHg (65-108); SAT O2 ABG 98 % (92-99)
[2017-05-18 12:37] LABS: PH ABG 7.37 (7.35-7.45)
[2017-05-18 12:38] LABS: FIO2 ABG 30; PCO2 ABG 51 mmHg (35-46)
[2017-05-18] MEDS: MEROPENEM IV Push 500 MG VIAL. IVP ×2 (14:00→22:10)
[2017-05-18 14:13] LABS: TROPONINI < 0.017 ng/mL (0.000-0.055)
[2017-05-18 14:15] LABS: ANION GAP 12 (6-14); BLOOD UREA NITROGEN 14 mg/dL (7-20); CALCIUM 8.7 mg/dL (8.5-10.1); CARBON DIOXIDE 26 mmol/L (21-32); CHLORIDE 102 mmol/L (98-107); CHOLESTEROL 137 mg/dL (0-200); CHOLESTEROL/HDL RATIO 2.9; CREATININE 0.7 mg/dL (0.6-1.0); GFR 79.2; GLUCOSE 229 mg/dL (70-99); HDLC 48 mg/dL (40-60); LDLC 73 mg/dL (0-100); NON-HDL CHOLESTEROL 89 mg/dL (0-129); POTASSIUM 4.1 mmol/L (3.5-5.1); SODIUM 140 mmol/L (136-145); TRIGLYCERIDES 81 mg/dL (0-150); VLDLC 16 mg/dL (0-40)
[2017-05-18 16:17] LABS: MRSA BY PCR Negative (Negative)
[2017-05-18] MEDS: rOPINIRole 0.25 MG TABLET. PO ×2 (21:00→23:18)
[2017-05-18] MEDS: VANCOMYCIN 1 GM in IV 1/2 NORMAL SALINE 250 ML IV (23:18)
[2017-05-19] MEDS: IPRATRPIUM/ALBUTEROL 0.5/2.5MG 3 ML NEBU. NEB ×5 (01:45→20:21)
[2017-05-19] MEDS: MEROPENEM IV Push 500 MG VIAL. IVP ×3 (05:29→23:07)
[2017-05-19] MEDS: LEVOTHYROXINE 50 MCG TABLET PO (05:29)
[2017-05-19 07:13] LABS: ANION GAP 16 (6-14); BLOOD UREA NITROGEN 16 mg/dL (7-20); CALCIUM 8.7 mg/dL (8.5-10.1); CARBON DIOXIDE 23 mmol/L (21-32); CHLORIDE 103 mmol/L (98-107); CREATININE 0.7 mg/dL (0.6-1.0); GFR 79.2; GLUCOSE 131 mg/dL (70-99); SODIUM 142 mmol/L (136-145)
[2017-05-19 07:19] LABS: POTASSIUM 4.6 mmol/L (3.5-5.1)
[2017-05-19] MEDS: diazePAM 5 MG TABLET PO ×2 (09:00→21:00)
[2017-05-19] MEDS: METOPROLOL TART IMMED RELEASE 25 MG TABLET. PO ×2 (09:00→21:00)
[2017-05-19] MEDS: VANCOMYCIN PER PHARMACY MC (09:05)
[2017-05-19 09:09] LABS: ADD MAN DIFF? NO
[2017-05-19 09:11] LABS: BASO % 0 % (0-3); EOS % 0 % (0-3); HEMATOCRIT 37.3 % (36.0-47.0); HEMOGLOBIN 11.9 g/dL (12.0-15.5); LYMPH % 9 % (24-48); MEAN CORPUSCULAR HEMOGLOBIN 30 pg (25-35); MEAN CORPUSCULAR HGB CONC 32 g/dL (31-37); MEAN CORPUSCULAR VOLUME 93 fL (79-100); MONO % 9 % (0-9); NEUT # 9.1 x10^3uL (1.8-7.7); NEUT % 82 % (31-73); PLATELET COUNT 244 x10^3/uL (140-400); RED BLOOD COUNT 4.02 x10^6/uL (3.50-5.40); RED CELL DISTRIBUTION WIDTH 15.3 % (11.5-14.5); WHITE BLOOD COUNT 11.1 x10^3/uL (4.0-11.0)
[2017-05-19] MEDS: ASPIRIN ENTERIC COATED 81 MG TABLET.DR. PO (09:24)
[2017-05-19] MEDS: ASCORBIC ACID 500 MG TABLET PO (09:24)
[2017-05-19] MEDS: LACTOBACILLUS RHAMNOSUS GG 1 CAPSULE. PO ×2 (09:24→21:00)
[2017-05-19] MEDS: AMIODARONE HCL 200 MG TABLET. PO (09:24)
[2017-05-19] MEDS: FUROSEMIDE 20 MG/2 ML VIAL. IVP ×2 (09:24→12:30)
[2017-05-19] MEDS: FUROSEMIDE 40 MG/4 ML VIAL. IVP (20:57)
[2017-05-19] MEDS: rOPINIRole 0.25 MG TABLET. PO (21:00)
[2017-05-19 22:41] LABS: VANC TR 15.7 mcg/mL (10.0-20.0)
[2017-05-19] MEDS: VANCOMYCIN 1 GM in IV 1/2 NORMAL SALINE 250 ML IV (23:00)
[2017-05-20] MEDS: VANCOMYCIN PER PHARMACY MC (01:27)
[2017-05-20] MEDS: MEROPENEM IV Push 500 MG VIAL. IVP (05:21)
[2017-05-20] MEDS: LEVOTHYROXINE 50 MCG TABLET PO (05:21)
[2017-05-20] MEDS: ASPIRIN ENTERIC COATED 81 MG TABLET.DR. PO (08:00)
[2017-05-20] MEDS: IPRATRPIUM/ALBUTEROL 0.5/2.5MG 3 ML NEBU. NEB (08:00)
[2017-05-20] MEDS: ASCORBIC ACID 500 MG TABLET PO (09:00)
[2017-05-20] MEDS: LACTOBACILLUS RHAMNOSUS GG 1 CAPSULE. PO (09:00)
[2017-05-20] MEDS: FUROSEMIDE 20 MG/2 ML VIAL. IVP (09:00)
[2017-05-20] MEDS: diazePAM 5 MG TABLET PO (09:00)
[2017-05-20] MEDS: METOPROLOL TART IMMED RELEASE 25 MG TABLET. PO (09:00)
[2017-05-20] MEDS: AMIODARONE HCL 200 MG TABLET. PO (09:00)
== END 2017-05-20 08:00 | disposition expired | DRG 871 ==
LOC: 5 NORTH 05-18 01:18 → ER 23:13 → 6 SOUTH 05-19 14:56 → 1 WEST ICU 05-18 07:09
DX: A41.9 Sepsis, unspecified organism (principal); J96.02 Acute respiratory failure with hypercapnia; I50.33 Acute on chronic diastolic (congestive) heart failure; G93.1 Anoxic brain damage, not elsewhere classified; I48.0 Paroxysmal atrial fibrillation; J18.9 Pneumonia, unspecified organism; I11.0 Hypertensive heart disease with heart failure; I27.20 Pulmonary hypertension, unspecified; I48.2 Chronic atrial fibrillation; J96.20 Acute and chronic respiratory failure, unspecified whether with hypoxia or hypercapnia; J44.0 Chronic obstructive pulmonary disease with (acute) lower respiratory infection; J44.1 Chronic obstructive pulmonary disease with (acute) exacerbation; N39.0 Urinary tract infection, site not specified; Z66 Do not resuscitate; J98.01 Acute bronchospasm; D64.9 Anemia, unspecified; I35.1 Nonrheumatic aortic (valve) insufficiency; I35.2 Nonrheumatic aortic (valve) stenosis with insufficiency; I49.5 Sick sinus syndrome; K59.00 Constipation, unspecified; H35.30 Unspecified macular degeneration; E78.5 Hyperlipidemia, unspecified; F41.9 Anxiety disorder, unspecified; G47.00 Insomnia, unspecified; E03.9 Hypothyroidism, unspecified; E78.00 Pure hypercholesterolemia, unspecified; M19.90 Unspecified osteoarthritis, unspecified site; K42.9 Umbilical hernia without obstruction or gangrene; Z87.440 Personal history of urinary (tract) infections; Z88.1 Allergy status to other antibiotic agents; Z88.2 Allergy status to sulfonamides; Z88.6 Allergy status to analgesic agent; Z83.3 Family history of diabetes mellitus; Z81.1 Family history of alcohol abuse and dependence; Z81.2 Family history of tobacco abuse and dependence; Z82.49 Family history of ischemic heart disease and other diseases of the circulatory system; Z87.891 Personal history of nicotine dependence; Z95.810 Presence of automatic (implantable) cardiac defibrillator
CPT/HCPCS: 36415; 36600; 51701; 71045; 80048; 80053; 80061; 80202; 81001; 82805; 83605; 83735; 83880; 84145; 84443; 84484; 85025; 87040; 87086; 87641; 87804; 87804-59; 93005; 93306; 94640; 96361; 96365; 96375; 97162-GP; 97165-GO; 99285-25; J0692; J1940; J2185; J2930; J3370; J3490; J7030; J7050; J7620